=== PATIENT | male | born 1990 | race Caucasian/White ===

== ENCOUNTER 2017-09-21 14:00 | Emergency (ER) | payer OTHER ==
[~2017-09-21] VITALS: Ht 167.6 cm; Wt 72.6 kg
[~2017-09-21 14:00] MED LIST: ALBU90OI INH; AMOCLA875 PO; AMOX500 PO; ATOM25; ATOM40 PO; ATOM60; CITA20 PO; CLON.1 PO; CYCL10 PO; ESCI10; ESCI20 PO; HYDACE5 PO; HYDACE5325 PO; HYDHCL25; HYDHCL25 PO; IBUP600 PO; IBUP800 PO; Minipress2 MG; NEOPOLHCSU OT; NORT25; Norco 5-325 Ta1 EACH PO; PRAZ1 PO; PRED20 PO; Pepcid20 MG PO; RXCYCL10 PO; RXLORA1 PO; RXTRAM50 PO; TRAM50 PO; Ultram50 MG PO
[2017-09-21 14:36] LABS: BASOPHILS ABSOLUTE AUTO 0.02 K/mm3 (0.00-0.23); BASOPHILS PERCENT AUTO 0 % (0-2); EOSINOPHILS ABSOLUTE AUTO 0.13 K/mm3 (0.00-0.68); EOSINOPHILS PERCENT AUTO 2 % (0-6); Hematocrit 39.6 % (37.0-53.0); Hemoglobin 13.9 g/dL (13.5-17.5); IMMATURE GRAN ABSOLUTE AUTO 0.02 K/mm3 (0.00-0.10); IMMATURE GRAN PERCENT AUTO 0 % (0-1); LYMPHOCYTES ABSOLUTE AUTO 2.72 K/mm3 (0.84-5.20); LYMPHOCYTES PERCENT AUTO 37 % (21-46); MONOCYTES ABSOLUTE AUTO 0.47 K/mm3 (0.16-1.47); MONOCYTES PERCENT AUTO 6 % (4-13); Mean Corpuscular HGB 31.4 pg (26.0-34.0); Mean Corpuscular HGB Conc 35.1 g/dL (31.5-36.5); Mean Corpuscular Volume 90 fL (80-100); Mean Platelet Volume 9.2 fL (9.1-12.4); NEUTROPHILS ABSOLUTE AUTO 4.07 K/mm3 (1.96-9.15); NEUTROPHILS PERCENT AUTO 55 % (41-73); Platelet Count 352 K/mm3 (150-400); RDW Standard Deviation 39.6 fL (35.1-46.3); Red Blood Cell Count 4.42 M/mm3 (4.30-5.90); White Blood Cell Count 7.43 K/mm3 (4.00-11.30)
[2017-09-21 14:56] LABS: Alanine Aminotransfer (ALT/SGP 18 U/L (12-78); Albumin, Blood 3.8 g/dL (3.4-5.0); Albumin/Globulin Ratio 1.1 (0.8-1.8); Alk Phos 66 U/L (50-136); Anion Gap 9 mmol/L (6-16); Aspartate Aminotrans (AST/SGOT 20 U/L (12-37); Bilirubin, Total 0.4 mg/dL (0.1-1.0); Blood Urea Nitrogen 11 mg/dL (8-24); Bun/Creatinine Ratio 12.4 (12.0-20.0); CO2, Blood 24 mmol/L (21-32); Calcium, Blood 8.7 mg/dL (8.5-10.1); Chloride, Blood 108 mmol/L (98-108); Creatinine, Blood 0.89 mg/dL (0.60-1.20); Globulin, Blood 3.5 g/dL (2.2-4.0); Glomerular Filtration Rate >60 (60-); Glucose, Blood 115 mg/dL (70-99); Potassium, Blood 3.4 mmol/L (3.5-5.5); Sodium, Blood 141 mmol/L (136-145); Total Protein, Blood 7.3 g/dL (6.4-8.2); Troponin I <0.015 ng/mL (0.000-0.040)
== END 2017-09-21 16:29 | disposition home or self-care (01) ==
LOC: ER 14:00
PROVIDERS: Emergency Medicine
DX: R55 Syncope and collapse (principal); I10 Essential (primary) hypertension; J45.909 Unspecified asthma, uncomplicated; F17.210 Nicotine dependence, cigarettes, uncomplicated; Z91.038 Other insect allergy status; Z88.8 Allergy status to other drugs, medicaments and biological substances
CPT/HCPCS: 80053; 84484; 85025; 93005; 93010; 93225; 93226; 99284-25

== ENCOUNTER 2017-10-07 14:20 | Inpatient (IN) | payer OTHER ==
[~2017-10-07] VITALS: Ht 167.6 cm; Wt 78.1 kg
[2017-10-07 15:02] LABS: Source, Urine Clean Catch
[2017-10-07 15:07] LABS: BASOPHILS ABSOLUTE AUTO 0.01 K/mm3 (0.00-0.23); BASOPHILS PERCENT AUTO 0 % (0-2); EOSINOPHILS PERCENT AUTO 0 % (0-6); Hematocrit 40.1 % (37.0-53.0); Hemoglobin 13.7 g/dL (13.5-17.5); IMMATURE GRAN ABSOLUTE AUTO 0.02 K/mm3 (0.00-0.10); IMMATURE GRAN PERCENT AUTO 0 % (0-1); LYMPHOCYTES ABSOLUTE AUTO 1.66 K/mm3 (0.84-5.20); LYMPHOCYTES PERCENT AUTO 33 % (21-46); MONOCYTES ABSOLUTE AUTO 0.06 K/mm3 (0.16-1.47); MONOCYTES PERCENT AUTO 1 % (4-13); Mean Corpuscular HGB 31.1 pg (26.0-34.0); Mean Corpuscular HGB Conc 34.2 g/dL (31.5-36.5); Mean Corpuscular Volume 91 fL (80-100); Mean Platelet Volume 9.5 fL (9.1-12.4); NEUTROPHILS ABSOLUTE AUTO 3.24 K/mm3 (1.96-9.15); NEUTROPHILS PERCENT AUTO 65 % (41-73); Platelet Count 323 K/mm3 (150-400); RDW Standard Deviation 40.4 fL (35.1-46.3); White Blood Cell Count 4.99 K/mm3 (4.00-11.30)
[2017-10-07 15:23] LABS: Appearance, Urine Clear (Clear); Bilirubin, Urine Neg (Neg); Blood, Urine Neg (Neg); Color, Urine Yellow (P-Yellow); Glucose Qualitative, Urine Neg (Neg); Ketones, Urine 1+ (Neg); Leukocyte Esterase, Urine Neg (Neg); Nitrite, Urine Neg (Neg); Protein, Urine 3+ (Neg); Specific Gravity, Urine 1.015 (1.003-1.022); Urobilinogen, Urine NORM (Normal)
[2017-10-07 15:30] LABS: Alanine Aminotransfer (ALT/SGP 17 U/L (12-78); Albumin, Blood 3.7 g/dL (3.4-5.0); Albumin/Globulin Ratio 1.1 (0.8-1.8); Alk Phos 51 U/L (50-136); Anion Gap 11 mmol/L (6-16); Aspartate Aminotrans (AST/SGOT 15 U/L (12-37); Bilirubin, Total 0.4 mg/dL (0.1-1.0); Blood Urea Nitrogen 14 mg/dL (8-24); Bun/Creatinine Ratio 11.1 (12.0-20.0); CO2, Blood 23 mmol/L (21-32); Calcium, Blood 8.3 mg/dL (8.5-10.1); Chloride, Blood 110 mmol/L (98-108); Creatinine, Blood 1.26 mg/dL (0.60-1.20); Ethanol (Alcohol), Blood, Med <3 mg/dL; Globulin, Blood 3.4 g/dL (2.2-4.0); Glomerular Filtration Rate >60 (60-); Glucose, Blood 95 mg/dL (70-99); Potassium, Blood 3.7 mmol/L (3.5-5.5); Salicylate 1.7 mg/dL (2.8-20.0); Sodium, Blood 144 mmol/L (136-145); Total Protein, Blood 7.1 g/dL (6.4-8.2)
[2017-10-07 15:37] LABS: CPK Creatine Kinase 116 U/L (39-308); Thyroid Stimulating Hormone 0.668 uIU/mL (0.360-4.800)
[2017-10-07 15:42] LABS: Acetaminophen, Random <2.0 ug/mL (10.0-30.0)
[2017-10-07 15:44] LABS: U Amphetamine Screen Not Detected; U Barbituate Screen Not Detected; U Benzodiazapine Screen Not Detected; U Buprenorphine Screen Not Detected; U Cannabinoids Screen Not Detected; U Cocaine Screen Not Detected; U Methadone Screen Not Detected; U Methamphetamine Screen Not Detected; U Opiates Screen Not Detected; U Oxycodone Screen Not Detected; U Phencyclidine Screen Not Detected; U Propoxyphene Screen Not Detected
[2017-10-07 15:55] LABS: Bacteria Not Seen /hpf; Red Blood Cells, Urine Not Seen /hpf (0-2); Squamous Epithelial Cells Not Seen /hpf (Few); White Blood Cells, Urine Not Seen /hpf (0-5)
[2017-10-07 16:39] LABS: Valproic Acid >300.0 ug/mL (50.0-100.0)
[2017-10-07] MEDS ORDERED: CLON.1 PO (16:44)
[2017-10-07] MEDS ORDERED: Prazosin HCl1 MG PO (16:44)
[2017-10-07] MEDS ORDERED: DIVA500EC PO (16:44)
[2017-10-07 18:04] LABS: Valproic Acid 329.1 ug/mL (50.0-100.0)
[2017-10-07 20:31] LABS: Valproic Acid 186.5 ug/mL (50.0-100.0)
[2017-10-08 03:58] LABS: Hematocrit 35.1 % (37.0-53.0); Hemoglobin 11.8 g/dL (13.5-17.5); Mean Corpuscular HGB 30.6 pg (26.0-34.0); Mean Corpuscular HGB Conc 33.6 g/dL (31.5-36.5); Mean Corpuscular Volume 91 fL (80-100); Mean Platelet Volume 9.3 fL (9.1-12.4); Platelet Count 260 K/mm3 (150-400); RDW Coefficient Variation 12.1 % (11.7-14.2); RDW Standard Deviation 40.7 fL (35.1-46.3); Red Blood Cell Count 3.85 M/mm3 (4.30-5.90); White Blood Cell Count 7.19 K/mm3 (4.00-11.30)
[2017-10-08 04:18] LABS: Alanine Aminotransfer (ALT/SGP 14 U/L (12-78); Albumin, Blood 2.8 g/dL (3.4-5.0); Alk Phos 39 U/L (50-136); Anion Gap 7 mmol/L (6-16); Aspartate Aminotrans (AST/SGOT 13 U/L (12-37); Bilirubin, Total 0.5 mg/dL (0.1-1.0); Blood Urea Nitrogen 12 mg/dL (8-24); Bun/Creatinine Ratio 12.6 (12.0-20.0); CO2, Blood 23 mmol/L (21-32); Calcium, Blood 7.1 mg/dL (8.5-10.1); Chloride, Blood 111 mmol/L (98-108); Creatinine, Blood 0.95 mg/dL (0.60-1.20); Globulin, Blood 2.8 g/dL (2.2-4.0); Glomerular Filtration Rate >60 (60-); Glucose, Blood 88 mg/dL (70-99); Potassium, Blood 3.8 mmol/L (3.5-5.5); Sodium, Blood 141 mmol/L (136-145); Total Protein, Blood 5.6 g/dL (6.4-8.2); Valproic Acid 100.2 ug/mL (50.0-100.0); Valproic Acid 102.5 ug/mL (50.0-100.0)
[2017-10-09 05:03] LABS: Alanine Aminotransfer (ALT/SGP 18 U/L (12-78); Albumin, Blood 3.1 g/dL (3.4-5.0); Alk Phos 56 U/L (50-136); Anion Gap 8 mmol/L (6-16); Aspartate Aminotrans (AST/SGOT 13 U/L (12-37); Bilirubin, Total 0.3 mg/dL (0.1-1.0); Blood Urea Nitrogen 8 mg/dL (8-24); Bun/Creatinine Ratio 8.8 (12.0-20.0); CO2, Blood 27 mmol/L (21-32); Calcium, Blood 8.4 mg/dL (8.5-10.1); Chloride, Blood 108 mmol/L (98-108); Creatinine, Blood 0.91 mg/dL (0.60-1.20); Glomerular Filtration Rate >60 (60-); Glucose, Blood 85 mg/dL (70-99); Potassium, Blood 3.9 mmol/L (3.5-5.5); Sodium, Blood 143 mmol/L (136-145); Total Protein, Blood 6.1 g/dL (6.4-8.2)
[2017-10-09 05:04] LABS: Valproic Acid 47.3 ug/mL (50.0-100.0)
== END 2017-10-09 17:03 | disposition home or self-care (01) | DRG 918 ==
LOC: ER 14:20 → ICUE 16:53 → ICUW 16:53 → ICUE 17:58
PROVIDERS: Hospitalist; Internal Medicine; Nurse Practitioner Acute Care
DX: T39.1X2A Poisoning by 4-Aminophenol derivatives, intentional self-harm, initial encounter (principal); F43.10 Post-traumatic stress disorder, unspecified; F17.210 Nicotine dependence, cigarettes, uncomplicated; Z78.1 Physical restraint status; J45.909 Unspecified asthma, uncomplicated; R45.1 Restlessness and agitation; Z59.0 Homelessness
CPT/HCPCS: 36415; 71045; 80053; 80164; 81001; 82140; 82550; 83735; 84443; 85025; 85027; 93005; 93010; 99285-25; C9113; G0480; J1650; J2405; J7030

== ENCOUNTER 2017-11-03 13:13 | Emergency (ER) | payer OTHER ==
[~2017-11-03] VITALS: Ht 167.6 cm; Wt 68.0 kg
[~2017-11-03 13:13] MED LIST changes: +DIVA500EC PO; +Prazosin HCl1 MG PO
[2017-11-03] MEDS ORDERED: Abilify2 MG (13:20)
[2017-11-03 14:50] LABS: Calcium, Ionized (POC) 1.21 mmol/L (1.10-1.46); Chloride (POC) 101 mmol/L (98-108); Glucose (ISTAT POC) 84 mg/dL (70-99); Hemoglobin (POC) 12.9 g/dL (13.5-17.5); Potassium (POC) 4.1 mmol/L (3.5-5.5); Sodium (POC) 140 mmol/L (135-148); Total CO2 (POC) 27 mmol/L (21-32)
== END 2017-11-03 15:15 | disposition home or self-care (01) ==
LOC: ER 13:13
PROVIDERS: Nurse Practitioner Family
DX: J06.9 Acute upper respiratory infection, unspecified (principal); R11.2 Nausea with vomiting, unspecified; I10 Essential (primary) hypertension; F17.200 Nicotine dependence, unspecified, uncomplicated; Z91.048 Other nonmedicinal substance allergy status; Z88.8 Allergy status to other drugs, medicaments and biological substances; Z79.899 Other long term (current) drug therapy
CPT/HCPCS: 36415; 80047; 85014; 99283

== ENCOUNTER → 2018-02-11 | Outpatient (CLI) | payer OTHER ==
[~2018-02-11] MED LIST changes: +Abilify2 MG
[2018-02-11 17:43] LABS: U Amphetamine Screen Not Detected; U Barbituate Screen Not Detected; U Benzodiazapine Screen Not Detected; U Cocaine Screen Not Detected; U Methamphetamine Screen Not Detected
[2018-02-11 17:44] LABS: U Buprenorphine Screen Not Detected; U Cannabinoids Screen Not Detected; U Methadone Screen Not Detected; U Opiates Screen Not Detected; U Oxycodone Screen Not Detected; U Phencyclidine Screen Not Detected; U Propoxyphene Screen Not Detected
== END ==
LOC: LAB 16:00 → LAB SHORT 16:00
PROVIDERS: Nurse Practitioner Family
DX: Z51.81 Encounter for therapeutic drug level monitoring (principal); Z79.899 Other long term (current) drug therapy

== ENCOUNTER → 2018-05-27 | Outpatient (CLI) | payer OTHER ==
[2018-05-27 14:55] LABS: U Amphetamine Screen DETECTED; U Methamphetamine Screen Not Detected
[2018-05-27 14:56] LABS: U Barbituate Screen Not Detected; U Benzodiazapine Screen Not Detected; U Buprenorphine Screen Not Detected; U Cannabinoids Screen Not Detected; U Cocaine Screen Not Detected; U Methadone Screen Not Detected; U Opiates Screen Not Detected; U Oxycodone Screen Not Detected; U Phencyclidine Screen Not Detected; U Propoxyphene Screen Not Detected
== END ==
LOC: LAB SHORT 14:13 → LAB 14:13
PROVIDERS: Nurse Practitioner Family
DX: Z51.81 Encounter for therapeutic drug level monitoring (principal); Z79.899 Other long term (current) drug therapy

== ENCOUNTER 2018-06-04 20:45 | Emergency (ER) | payer OTHER ==
[~2018-06-04] VITALS: Ht 170.2 cm; Wt 77.1 kg
[2018-06-04] MEDS ORDERED: AMPDEX5 PO (20:58)
== END 2018-06-04 21:22 | disposition home or self-care (01) ==
LOC: ER 20:45
DX: R56.9 Unspecified convulsions (principal); F31.9 Bipolar disorder, unspecified; F90.9 Attention-deficit hyperactivity disorder, unspecified type; F43.10 Post-traumatic stress disorder, unspecified; F17.210 Nicotine dependence, cigarettes, uncomplicated
CPT/HCPCS: 99284-25

== ENCOUNTER 2018-06-05 16:42 | Emergency (ER) | payer OTHER ==
[~2018-06-05] VITALS: Ht 170.2 cm; Wt 77.1 kg
[~2018-06-05 16:42] MED LIST changes: +AMPDEX5 PO
== END 2018-06-05 18:12 | disposition home or self-care (01) ==
LOC: ER 16:42
DX: S60.511A Abrasion of right hand, initial encounter (principal); R07.89 Other chest pain; V49.9XXA Car occupant (driver) (passenger) injured in unspecified traffic accident, initial encounter; Z88.8 Allergy status to other drugs, medicaments and biological substances; Z91.030 Bee allergy status; Z79.899 Other long term (current) drug therapy; J45.909 Unspecified asthma, uncomplicated; I10 Essential (primary) hypertension; F90.9 Attention-deficit hyperactivity disorder, unspecified type; F17.210 Nicotine dependence, cigarettes, uncomplicated
CPT/HCPCS: 71046; 73130; 99284-25

== ENCOUNTER 2018-11-02 16:02 | Emergency (ER) | payer OTHER ==
[~2018-11-02] VITALS: Ht 167.6 cm; Wt 83.9 kg
[2018-11-02] MEDS ORDERED: ARIPIPRAZOLE10 M1 PO (16:32)
[2018-11-02] MEDS ORDERED: Oxcarbazepine300 MG (16:32)
[2018-11-02] MEDS ORDERED: DIVA250ER PO (16:32)
[2018-11-02] MEDS ORDERED: Polytrim Eye Dr10 ML BOTHEYES (17:30)
== END 2018-11-02 17:43 | disposition home or self-care (01) ==
LOC: ER 16:02
DX: H10.9 Unspecified conjunctivitis (principal); F90.9 Attention-deficit hyperactivity disorder, unspecified type; I10 Essential (primary) hypertension; F17.210 Nicotine dependence, cigarettes, uncomplicated; Z91.048 Other nonmedicinal substance allergy status; Z91.030 Bee allergy status; Z88.8 Allergy status to other drugs, medicaments and biological substances; Z79.899 Other long term (current) drug therapy
CPT/HCPCS: 99282

== ENCOUNTER 2019-02-06 22:12 | Emergency (ER) | payer OTHER ==
[~2019-02-06] VITALS: Ht 167.6 cm; Wt 86.2 kg
[~2019-02-06 22:12] MED LIST changes: +ARIPIPRAZOLE10 M1 PO; +DIVA250ER PO; +Oxcarbazepine300 MG; +Polytrim Eye Dr10 ML BOTHEYES
[2019-02-06] MEDS ORDERED: LAMO25 PO (22:31)
[2019-02-06] MEDS ORDERED: OXCA150 PO (22:31)
[2019-02-06 23:50] LABS: Calcium, Ionized (POC) 1.13 mmol/L (1.10-1.46); Chloride (POC) 103 mmol/L (98-108); Glucose (ISTAT POC) 92 mg/dL (70-99); Hemoglobin (POC) 16.3 g/dL (13.5-17.5); Sodium (POC) 137 mmol/L (135-148); Total CO2 (POC) 27 mmol/L (21-32)
== END 2019-02-06 23:59 | disposition home or self-care (01) ==
LOC: ER 22:12
PROVIDERS: Physician Assistant
DX: R56.9 Unspecified convulsions (principal); Z91.14 Patient's other noncompliance with medication regimen; Z91.038 Other insect allergy status; J45.909 Unspecified asthma, uncomplicated; I10 Essential (primary) hypertension; F43.10 Post-traumatic stress disorder, unspecified; F90.9 Attention-deficit hyperactivity disorder, unspecified type; F17.210 Nicotine dependence, cigarettes, uncomplicated
CPT/HCPCS: 80047; 85014; 99284

== ENCOUNTER 2019-04-10 23:19 | Emergency (ER) | payer MEDICARE, OTHER ==
[~2019-04-10] VITALS: Ht 170.2 cm; Wt 88.9 kg
[~2019-04-10 23:19] MED LIST changes: +LAMO25 PO; +OXCA150 PO
== END 2019-04-11 04:00 | disposition left against medical advice (07) ==
LOC: ER 23:19
DX: Z53.21 Procedure and treatment not carried out due to patient leaving prior to being seen by health care provider (principal)

== ENCOUNTER 2019-04-13 12:29 | Emergency (ER) | payer MEDICARE, OTHER ==
[~2019-04-13] VITALS: Ht 172.7 cm; Wt 88.9 kg
[2019-04-13] MEDS ORDERED: Oxcarbazepine300 MG PO (12:43)
[2019-04-13] MEDS ORDERED: DIVA250ER PO (12:43)
[2019-04-13] MEDS ORDERED: LAMOTRIGINE100 M1 PO (12:43)
[2019-04-13 13:31] LABS: Anion Gap 6 mmol/L (6-16); Blood Urea Nitrogen 10 mg/dL (8-24); Bun/Creatinine Ratio 10.1 (12.0-20.0); CO2, Blood 27 mmol/L (21-32); Calcium, Blood 8.9 mg/dL (8.5-10.1); Chloride, Blood 106 mmol/L (98-108); Creatinine, Blood 0.99 mg/dL (0.60-1.20); Glomerular Filtration Rate >60 (60-); Glucose, Blood 101 mg/dL (70-99); Potassium, Blood 3.8 mmol/L (3.5-5.5); Sodium, Blood 139 mmol/L (136-145)
[2019-04-13 13:36] LABS: Valproic Acid 39.4 ug/mL (50.0-100.0)
== END 2019-04-13 14:16 | disposition left against medical advice (07) ==
LOC: ER 12:29
PROVIDERS: Emergency Medicine
DX: G40.909 Epilepsy, unspecified, not intractable, without status epilepticus (principal); S00.81XA Abrasion of other part of head, initial encounter; I10 Essential (primary) hypertension; F90.9 Attention-deficit hyperactivity disorder, unspecified type; J45.909 Unspecified asthma, uncomplicated; F17.210 Nicotine dependence, cigarettes, uncomplicated; F43.10 Post-traumatic stress disorder, unspecified; Z91.14 Patient's other noncompliance with medication regimen; Z91.030 Bee allergy status; Z88.8 Allergy status to other drugs, medicaments and biological substances; Z91.048 Other nonmedicinal substance allergy status; X58.XXXA Exposure to other specified factors, initial encounter
CPT/HCPCS: 36415; 80048; 80164; 99284; J7030

== ENCOUNTER 2019-04-17 16:57 | Emergency (ER) | payer MEDICARE, OTHER ==
[~2019-04-17] VITALS: Ht 172.7 cm; Wt 90.7 kg
[~2019-04-17 16:57] MED LIST changes: +LAMOTRIGINE100 M1 PO; +Oxcarbazepine300 MG PO
== END 2019-04-17 17:15 | disposition home or self-care (01) ==
LOC: ER 16:57
DX: R56.9 Unspecified convulsions (principal); S00.81XA Abrasion of other part of head, initial encounter; F90.9 Attention-deficit hyperactivity disorder, unspecified type; F17.210 Nicotine dependence, cigarettes, uncomplicated; W18.30XA Fall on same level, unspecified, initial encounter
CPT/HCPCS: 99284

== ENCOUNTER 2019-05-03 14:21 | Emergency (ER) | payer MEDICARE, OTHER ==
[~2019-05-03] VITALS: Ht 172.7 cm; Wt 86.2 kg
[2019-05-03] MEDS ORDERED: ARIPIPRAZOLE10 M1 PO (14:40)
[2019-05-03 15:14] LABS: Valproic Acid 54.7 ug/mL (50.0-100.0)
== END 2019-05-03 16:38 | disposition home or self-care (01) ==
LOC: ER 14:21
PROVIDERS: Emergency Medicine
DX: R56.9 Unspecified convulsions (principal); I10 Essential (primary) hypertension; J45.909 Unspecified asthma, uncomplicated; F43.10 Post-traumatic stress disorder, unspecified; F17.210 Nicotine dependence, cigarettes, uncomplicated; Z88.8 Allergy status to other drugs, medicaments and biological substances; Z91.030 Bee allergy status
CPT/HCPCS: 80164; 99284

== ENCOUNTER 2019-05-03 23:12 | Emergency (ER) | payer MEDICARE, OTHER ==
[~2019-05-03] VITALS: Ht 170.2 cm; Wt 86.2 kg
[2019-05-03 23:59] LABS: BASOPHILS ABSOLUTE AUTO 0.04 K/mm3 (0.00-0.23); BASOPHILS PERCENT AUTO 0 % (0-2); EOSINOPHILS ABSOLUTE AUTO 0.04 K/mm3 (0.00-0.68); EOSINOPHILS PERCENT AUTO 0 % (0-6); Hematocrit 42.3 % (37.0-53.0); Hemoglobin 14.2 g/dL (13.5-17.5); IMMATURE GRAN ABSOLUTE AUTO 0.03 K/mm3 (0.00-0.10); IMMATURE GRAN PERCENT AUTO 0 % (0-1); LYMPHOCYTES ABSOLUTE AUTO 2.77 K/mm3 (0.84-5.20); LYMPHOCYTES PERCENT AUTO 22 % (21-46); MONOCYTES ABSOLUTE AUTO 0.93 K/mm3 (0.16-1.47); MONOCYTES PERCENT AUTO 7 % (4-13); Mean Corpuscular HGB 31.5 pg (26.0-34.0); Mean Corpuscular HGB Conc 33.6 g/dL (31.5-36.5); Mean Corpuscular Volume 94 fL (80-100); Mean Platelet Volume 9.4 fL (9.1-12.4); NEUTROPHILS ABSOLUTE AUTO 9.07 K/mm3 (1.96-9.15); NEUTROPHILS PERCENT AUTO 71 % (41-73); Platelet Count 370 K/mm3 (150-400); RDW Coefficient Variation 12.8 % (11.7-14.2); RDW Standard Deviation 43.8 fL (35.1-46.3); Red Blood Cell Count 4.51 M/mm3 (4.30-5.90); White Blood Cell Count 12.88 K/mm3 (4.00-11.30)
[2019-05-04 00:16] LABS: Anion Gap 9 mmol/L (6-16); Blood Urea Nitrogen 11 mg/dL (8-24); Bun/Creatinine Ratio 11.5 (12.0-20.0); CO2, Blood 24 mmol/L (21-32); Calcium, Blood 8.6 mg/dL (8.5-10.1); Chloride, Blood 103 mmol/L (98-108); Creatinine, Blood 0.95 mg/dL (0.60-1.20); Ethanol (Alcohol), Blood, Med 98 mg/dL; Glomerular Filtration Rate >60 (60-); Glucose, Blood 81 mg/dL (70-99); Potassium, Blood 3.6 mmol/L (3.5-5.5); Sodium, Blood 136 mmol/L (136-145)
== END 2019-05-04 00:59 | disposition home or self-care (01) ==
LOC: ER 23:12
PROVIDERS: Emergency Medicine
DX: S00.01XA Abrasion of scalp, initial encounter (principal); F10.129 Alcohol abuse with intoxication, unspecified; Y90.4 Blood alcohol level of 80-99 mg/100 ml; I10 Essential (primary) hypertension; F43.10 Post-traumatic stress disorder, unspecified; F90.9 Attention-deficit hyperactivity disorder, unspecified type; J45.909 Unspecified asthma, uncomplicated; F17.210 Nicotine dependence, cigarettes, uncomplicated; Z91.030 Bee allergy status; Z88.8 Allergy status to other drugs, medicaments and biological substances; Z79.899 Other long term (current) drug therapy; W50.0XXA Accidental hit or strike by another person, initial encounter
CPT/HCPCS: 70450; 80048; 80164; 85025; 99284-25; G0480

== ENCOUNTER 2019-05-13 19:35 | Inpatient (IN) | payer MEDICARE, OTHER ==
[~2019-05-13] VITALS: Ht 170.2 cm; Wt 82.6 kg
[2019-05-13 20:02] LABS: BASOPHILS ABSOLUTE AUTO 0.03 K/mm3 (0.00-0.23); BASOPHILS PERCENT AUTO 0 % (0-2); EOSINOPHILS ABSOLUTE AUTO 0.06 K/mm3 (0.00-0.68); EOSINOPHILS PERCENT AUTO 0 % (0-6); Hemoglobin 14.5 g/dL (13.5-17.5); IMMATURE GRAN ABSOLUTE AUTO 0.05 K/mm3 (0.00-0.10); IMMATURE GRAN PERCENT AUTO 0 % (0-1); LYMPHOCYTES ABSOLUTE AUTO 3.92 K/mm3 (0.84-5.20); LYMPHOCYTES PERCENT AUTO 27 % (21-46); MONOCYTES ABSOLUTE AUTO 1.02 K/mm3 (0.16-1.47); MONOCYTES PERCENT AUTO 7 % (4-13); Mean Corpuscular HGB 32.4 pg (26.0-34.0); Mean Corpuscular HGB Conc 34.5 g/dL (31.5-36.5); Mean Corpuscular Volume 94 fL (80-100); Mean Platelet Volume 9.4 fL (9.1-12.4); NEUTROPHILS ABSOLUTE AUTO 9.26 K/mm3 (1.96-9.15); NEUTROPHILS PERCENT AUTO 65 % (41-73); Platelet Count 389 K/mm3 (150-400); RDW Coefficient Variation 12.6 % (11.7-14.2); RDW Standard Deviation 43.5 fL (35.1-46.3); Red Blood Cell Count 4.48 M/mm3 (4.30-5.90); White Blood Cell Count 14.34 K/mm3 (4.00-11.30)
[2019-05-13 20:09] LABS: PCO2 Arterial 27.8 mmHg (35-45); PO2 Arterial 100 mmHg (80-100); pH Blood Arterial 7.48 (7.35-7.45)
[2019-05-13 20:20] LABS: U Amphetamine Screen Not Detected; U Barbituate Screen Not Detected; U Benzodiazapine Screen Not Detected; U Buprenorphine Screen Not Detected; U Cannabinoids Screen Not Detected; U Cocaine Screen Not Detected; U Methadone Screen Not Detected; U Methamphetamine Screen Not Detected; U Opiates Screen Not Detected; U Oxycodone Screen Not Detected; U Phencyclidine Screen Not Detected; U Propoxyphene Screen Not Detected
[2019-05-13 20:22] LABS: Acetaminophen, Random <2.0 ug/mL (10.0-30.0); Alanine Aminotransfer (ALT/SGP 21 U/L (12-78); Albumin/Globulin Ratio 1.1 (0.8-1.8); Alk Phos 45 U/L (50-136); Anion Gap 9 mmol/L (6-16); Aspartate Aminotrans (AST/SGOT 20 U/L (12-37); Bilirubin, Total 0.3 mg/dL (0.1-1.0); Blood Urea Nitrogen 10 mg/dL (8-24); Bun/Creatinine Ratio 9.7 (12.0-20.0); CO2, Blood 22 mmol/L (21-32); Calcium, Blood 8.8 mg/dL (8.5-10.1); Chloride, Blood 105 mmol/L (98-108); Creatinine, Blood 1.03 mg/dL (0.60-1.20); Ethanol (Alcohol), Blood, Med <3 mg/dL; Globulin, Blood 3.6 g/dL (2.2-4.0); Glomerular Filtration Rate >60 (60-); Glucose, Blood 115 mg/dL (70-99); Potassium, Blood 3.7 mmol/L (3.5-5.5); Sodium, Blood 136 mmol/L (136-145); Total Protein, Blood 7.6 g/dL (6.4-8.2); Valproic Acid 30.4 ug/mL (50.0-100.0)
[2019-05-13 21:26] LABS: Valproic Acid 35.8 ug/mL (50.0-100.0)
--- NOTE | 2019-05-13 22:00 | NUR ---
ASSUMPTION OF CARE: PT UP FROM ED. INTUBATED AND SEDATED. LUNG SOUNDS CLEAR EXCEPT FOR R. LOWER LOBE COARSENESS. VENT SETTINGS- AC 14/500/PEEP 5/FIO2 30%. SPO2 >90%. IN SR WITH SBP IN THE 100S, SBP IN THE 70S. WESTFALL IN PLACE DRAINING TO GRAVITY. 18G IN R WRIST, 18G IN LAC. NS INFUSING AND PROPOFOL INF AT 75MCG. POISON CONTROL CONTACTED BY ED STAFF. WILL CALL AND GIVE AN UPDATE TO POISON CONTROL. WILL CONTINUE TO MONITOR
--- NOTE | 2019-05-13 22:00 | NUR ---
PT TO ICU FROM ED VIA STRETCHER. CURRENTLY SEDATED WITH PROPOFOL AT 75MCG. VENTED-SETTINGS ARE AC 14/500/ PEEP 5/FIO2 30%. SPO2 >90%. WILL CONTINUE TO MONITOR
--- NOTE | 2019-05-13 23:46 | NUR ---
POISON CONTROL NOTIFIED OF PTS CONDITION. RNELIOT STATED DEPAKOTE HAS A SLOW AND UNPREDICTABLE ABSORPTION. PEAK LEVELS COULD OCCUR AT 18HRS. RECOMMENDATION IS TO REPEAT SALICYLATE LEVELS 6HRS FROM LAST DRAW. DEPAKOTE LEVELS TO BE DRAWN Q 4HRS. L-CARNITINE CAN BE USED REVERSAL IF LEVELS ELEVATE ABOVE 450. RECOMMENDED TO CHECK AMMONIA LEVELS-CURRENTLY NORMAL;ACETAMINOPHEN LEVELS-CURRENTLY <2.0. DEPAKOTE LEVELS DRAWN AT ABOUT 1999 ARE 30.4, 2100 LEVEL IS 35.8 AMMONIA IS CURRENTLY 20 PLTS- 389 AST/ALT NORMAL BUN/CREATININE NORMAL WILL CONTINUE TO MONITOR AND UPDATE POISON CONTROL NEEDED
[2019-05-14 01:45] LABS: Valproic Acid 39.2 ug/mL (50.0-100.0)
[2019-05-14 05:32] LABS: Hematocrit 39.5 % (37.0-53.0); Hemoglobin 13.1 g/dL (13.5-17.5); Mean Corpuscular HGB 31.6 pg (26.0-34.0); Mean Corpuscular HGB Conc 33.2 g/dL (31.5-36.5); Mean Corpuscular Volume 95 fL (80-100); Mean Platelet Volume 9.2 fL (9.1-12.4); Platelet Count 284 K/mm3 (150-400); RDW Coefficient Variation 12.9 % (11.7-14.2); RDW Standard Deviation 45.4 fL (35.1-46.3); Red Blood Cell Count 4.14 M/mm3 (4.30-5.90); White Blood Cell Count 9.02 K/mm3 (4.00-11.30)
[2019-05-14 05:51] LABS: Alanine Aminotransfer (ALT/SGP 19 U/L (12-78); Albumin, Blood 3.3 g/dL (3.4-5.0); Albumin/Globulin Ratio 1.1 (0.8-1.8); Alk Phos 49 U/L (50-136); Anion Gap 8 mmol/L (6-16); Aspartate Aminotrans (AST/SGOT 14 U/L (12-37); Bilirubin, Total 0.3 mg/dL (0.1-1.0); Blood Urea Nitrogen 8 mg/dL (8-24); Bun/Creatinine Ratio 8.7 (12.0-20.0); CO2, Blood 24 mmol/L (21-32); Calcium, Blood 8.4 mg/dL (8.5-10.1); Chloride, Blood 111 mmol/L (98-108); Creatinine, Blood 0.92 mg/dL (0.60-1.20); Globulin, Blood 3.1 g/dL (2.2-4.0); Glomerular Filtration Rate >60 (60-); Glucose, Blood 83 mg/dL (70-99); Potassium, Blood 3.5 mmol/L (3.5-5.5); Salicylate 2.4 mg/dL (2.8-20.0); Sodium, Blood 143 mmol/L (136-145); Total Protein, Blood 6.4 g/dL (6.4-8.2); Valproic Acid 44.9 ug/mL (50.0-100.0)
--- NOTE | 2019-05-14 06:36 | NUR ---
SUMMARY: PT REMAINS INTUBATED AND SEDATED. IN SR. SBP IN THE 100S. HR IN THE 50S. LUNG SOUNDS CLEAR. VENT AC 16/500/PEEP 5/ FIO2 25%. SPO2 >90%. OG IN PLACE TO LIS. WESTFALL IN PLACE DRAINING TO GRAVITY. 2PIVS, 18GS IN R WRIST AND LAC. PROPOFOL INF AT 60MCG AND NS AT 75MLS/HR. DEPAKOTE BLOOD LEVELS RISING SLOWLY. CURRENTLY LEVEL 44.9. WEAN AND SBT PERFORMED. PROPOFOL TURNED DOWN TO 40MCG. PT DID WELL WITH SBT HOWEVER WAS FIGHTING RESTRAINTS, SITTING UPRIGHT IN BED AND ATTEMPTING TO REACH TUBE. VERSED X 2 GIVEN. PROPOFOL BACK TO 60MCG. PT IS CURRENTLY RESTING COMFORTABLY, NOT FIGHTING RESTRAINTS OR REACHING FOR ETT AT THIS TIME. WILL CONTINUE TO GIO
--- NOTE | 2019-05-14 08:25 | NUR ---
SEDATION VACATION: PROPOFOL TURNED DOWN FROM 60 TO 40 BASED ON RESULTS GIVEN DURING VACATION FROM REPORT. PT BECAME WRESTLESS WITH THIS BUT NO PURPOSEFUL MOVEMENT. PROPOFOL AT 50 MCG/KG AT THIS TIME.
[2019-05-14 13:32] LABS: Valproic Acid 48.5 ug/mL (50.0-100.0)
--- NOTE | 2019-05-14 13:47 | NUR ---
PT'S NEED FOR 60MCG OF PROPOFOL DISCUSSED WITH DR PRIDE. PRECEDEX STARTED IN HOPES TO TITRATE PROPOFOL DOWN. PT'S HR AND BP BECAME DECREASED SO PRECEDEX TITRATED OFF. PROPOFOL AT 20MCG AT THIS TIME. VERSED AND FENTANYL AVAILABLE NEEDED. DR INSTRUCTED TO GIVE 1L NS BOLUS AND TO HOLD OFF EXTUBATING AT THIS TIME DUE TO BP INSTABILITY.
--- NOTE | 2019-05-14 14:46 | NUR ---
PT'S MOTHER CALLED TO DISCUSS PT'S GIRLFRIEND SOLEDAD. WANTED TO MAKE SURE THAT SOLEDAD IS NOT ON THE LIST TO GET INFORMATION. MOTHER WAS INFORMED THAT SOLEDAD'S NAME IS ON FACE SHEET AND MOTHER INSISTED THAT HER NAME BE REMOVED. DISCUSSED WITH PRE WAVE ASSEMBLER WHO STATES THAT THAT OCCURS WHEN PT FIRST ADMITTED AND THAT ADMITTING FILLS THAT OUT. PRE WAVE ASSEMBLER STATES WE CANNOT CHANGE FACE SHEET UNLESS PT REQUESTS IT. ENSURED MOTHER THAT SOLEDAD'S NAME IS NOT ON VERBAL CONSENT FORM. MOTHER REQUESTED THAT WE CHECK FOR PT'S WALLET WHICH IS HERE SO THAT SOLEDAD CANNOT HAVE IT. PRE WAVE ASSEMBLER AWARE
[2019-05-14 17:36] LABS: Valproic Acid 45.4 ug/mL (50.0-100.0)
--- NOTE | 2019-05-14 18:45 | NUR ---
SHIFT SUMMARY: ATTEMPTED TO TITRATE PROPOFOL DOWN BY USING FENTANYL, VERSED AND PRECEDEX. PRECEDEX CAUSED DECREASE IN BP AND HR. WHEN PT WAS TITRATED DOWN ON PROPOFOL TO IMPROVE VITALS HE BUCKED IN BED AND ATTEMPTED TO SELF EXTUBATE. PROPOFOL BACK AT 60MCG AT THIS TIME AND PRECEDEX IS OFF. BPS HYPOTENSIVE BUT STABLE. NO FURTHER NEEDS OR CONCERNS AT THIS TIME.
--- NOTE | 2019-05-14 20:15 | NUR ---
INITIAL ASSESSMENT PATIENT INTUBATED AND SEDATED. PATIENT RESPONDS TO NURSING CARE AND PAINFUL STIMULI. PATIENT AFEBRILE. NO SIGNS OF PAIN NOTED. PATIENT ON VENT SETTINGS OF AC 16, TV 500, PEEP 5, AND 25% FIO2. LUNGS CLEAR IN UPPER LOBES AND DIMINISHED IN LOWER LOBES. SMALL AMOUNT OF THIN, CLEAR SPUTUM BEING SUCTIONED FROM THE ETT. PATIENT IN SB TO SR, HR 50S TO 60S. BP STABLE. PULSES STRONG. NO EDEMA NOTED. ABDOMEN SOFT, NONDISTENDED, SOFT, WITH NORMOACTIVE BS NOTED. OG TO LIS DRAINING GREEN LIQUID. WESTFALL IN PLACE DRAINING GREEN COLORED URINE. SCATTERED TATTOOS NOTED, OTHERWISE SKIN APPEARS C/D/I. PROPOFOL INFUSING AT 60 MCG/ KG/ MINUTE, NS AT 75 MLS/ HOUR. BED LOW, CALL LIGHT IN REACH. WILL CONTINUE TO MONITOR PATIENT FREQUENTLY THROUGHOUT SHIFT.
[2019-05-14 21:33] LABS: Valproic Acid 40.4 ug/mL (50.0-100.0)
--- NOTE | 2019-05-14 22:41 | NUR ---
POISON CONTROL CALLED TO CHECK UP ON PATIENT. STATED THEY WOULD CALL BACK AGAIN IN AM.
--- NOTE | 2019-05-15 00:30 | NUR ---
PATIENT REMAINS INTUBATED AND SEDATED. PATIENT AFEBRILE. NO SIGNS OF PAIN. PATIENT AGITATED AT TIMES. RECEIVING PRN VERSED FOR AGITATION. HR 40S TO 50S. BP STABLE. NO OTHER ACUTE CHANGES TO NOTE ON AT THIS TIME. WILL CONTINUE TO MONITOR.
[2019-05-15 01:41] LABS: Valproic Acid 36.2 ug/mL (50.0-100.0)
--- NOTE | 2019-05-15 04:31 | NUR ---
PATIENT BACK ON SEDATION AFTER HAVING AM SEDATION VACATION AND WEAN. PATIENT TOLERATED WEAN FOR 15 MINUTES BEFORE BECAME HYPERTENSIVE AND HAD SOME LOW TIDAL VOLUMES. PATIENT REMAINED MOSTLY CALM AND COOPERATIVE. PATIENT HAD A COUPLE INSTANCES OF AGITATION AND ANXIETY BUT ABLE TO BE CALMED WITH VERBAL SUPPORT. PATIENT AFEBRILE. PATIENT FOLLOWING SOME SIMPLE COMMANDS. HR 40S TO 50S. SBP 140S TO 170S. NO OTHER ACUTE CHANGES TO NOTE ON AT THIS TIME. WILL CONTINUE TO MONITOR.
[2019-05-15 05:14] LABS: BASOPHILS ABSOLUTE AUTO 0.02 K/mm3 (0.00-0.23); BASOPHILS PERCENT AUTO 0 % (0-2); EOSINOPHILS PERCENT AUTO 2 % (0-6); Hemoglobin 12.1 g/dL (13.5-17.5); IMMATURE GRAN ABSOLUTE AUTO 0.02 K/mm3 (0.00-0.10); IMMATURE GRAN PERCENT AUTO 0 % (0-1); LYMPHOCYTES ABSOLUTE AUTO 2.15 K/mm3 (0.84-5.20); LYMPHOCYTES PERCENT AUTO 32 % (21-46); MONOCYTES PERCENT AUTO 9 % (4-13); Mean Corpuscular HGB 32.1 pg (26.0-34.0); Mean Corpuscular HGB Conc 33.6 g/dL (31.5-36.5); Mean Corpuscular Volume 96 fL (80-100); Mean Platelet Volume 9.4 fL (9.1-12.4); NEUTROPHILS ABSOLUTE AUTO 3.83 K/mm3 (1.96-9.15); NEUTROPHILS PERCENT AUTO 57 % (41-73); Platelet Count 261 K/mm3 (150-400); RDW Coefficient Variation 13.3 % (11.7-14.2); Red Blood Cell Count 3.77 M/mm3 (4.30-5.90); White Blood Cell Count 6.72 K/mm3 (4.00-11.30)
[2019-05-15 05:27] LABS: Alanine Aminotransfer (ALT/SGP 17 U/L (12-78); Albumin, Blood 2.9 g/dL (3.4-5.0); Alk Phos 45 U/L (50-136); Anion Gap 5 mmol/L (6-16); Aspartate Aminotrans (AST/SGOT 16 U/L (12-37); Bilirubin, Total 0.3 mg/dL (0.1-1.0); Blood Urea Nitrogen 7 mg/dL (8-24); Bun/Creatinine Ratio 6.9 (12.0-20.0); CO2, Blood 24 mmol/L (21-32); Calcium, Blood 8.1 mg/dL (8.5-10.1); Chloride, Blood 115 mmol/L (98-108); Creatinine, Blood 1.02 mg/dL (0.60-1.20); Globulin, Blood 2.8 g/dL (2.2-4.0); Glomerular Filtration Rate >60 (60-); Glucose, Blood 78 mg/dL (70-99); Magnesium, Blood 2.1 mg/dL (1.6-2.4); Phosphorus, Blood 2.3 mg/dL (2.5-4.9); Potassium, Blood 3.6 mmol/L (3.5-5.5); Sodium, Blood 144 mmol/L (136-145); Total Protein, Blood 5.7 g/dL (6.4-8.2); Valproic Acid 34.3 ug/mL (50.0-100.0)
--- NOTE | 2019-05-15 06:33 | NUR ---
SHIFT SUMMARY PATIENT REMAINED INTUBATED AND ON SEDATION. PATIENT RECEIVED PRN FENTANYL FOR SIGNS OF PAIN AND PRN VERSED FOR AGITATION. PATIENT DID HAVE SEDATION VACATION AND WEAN THIS AM. PATIENT LASTED FOR 15 MINUTES BEFORE BECAME HYPERTENSIVE AND TIDAL VOLUMES ON THE LOWER SIDE. PATIENT FOLLOWED SOME SIMPLE COMMANDS WHILE ON SEDATION VACATION. PATIENT NEEDED MUCH REASSURANCE AND SUPPORT FROM NURSE TO STAY CALM AND NOT ANXIOUS/ AGITATED. PATIENT REMAINED AFEBRILE. PATIENT SATTED 90% AND GREATER ON AC 16, TV 500, PEEP 5, 25% FIO2. PATIENT HAS SMALL TO MODERATE AMOUNT OF THICK, PALE YELLOW SPUTUM FROM ETT. PATIENT REMAINED SB TO SR, HR 40S TO 50S. BP STABLE TO SBP 170S ON WEAN. OG REMAINED TO LIS, GREEN DRAINAGE NOTED. NO BM THIS SHIFT. WESTFALL DRAINED ADEQUATE AMOUNT OF GREEN URINE. NO CHANGE TO SKIN. PATIENT REPOSITIONED T/O SHIFT. PROPOFOL AT 60 MCG/ KG/ MINUTE, NS AT 75 MLS/ HOUR. PATIENT RECEIVED COMPLETE BED BATH. BED LOW, CALL LIGHT IN REACH. NO SIGNS OF PAIN AT THIS TIME. [facility].
--- NOTE | 2019-05-15 07:30 | NUR ---
PT REMAINS INTUBATED WITH PROPOFOL GTT. OCCASIONALLY ANXIETY NOTED WITH RESTLESSNESS IN BED. MEDICATE PRN WITH FENTANYL AND VERSED PER ORDERS. LUNGS CLEAR WITH SCANT AMOUNT VILLARREAL SECRETIONS VIA ETT. ABDOMINAL BT'S HYPOACTIVE AND O.G. TO LIS. BILATERAL RESTRAINTS IN PLACE PER PROTOCOL. CONTINUE TO MONITOR AND TX PER ORDERS.
[2019-05-15 09:34] LABS: Valproic Acid 32.4 ug/mL (50.0-100.0)
--- NOTE | 2019-05-15 09:56 | NUR ---
DR PRIDE HERE WITH NEW ORDERS TO HAVE RESPIRATORY THERAPY DO TRIAL OF WEANING FOR POSSIBLE EXTUBATION. PROPOFOL GTT OFF.
--- NOTE | 2019-05-15 10:30 | NUR ---
PT FULLY AWAKE, FOLLOWING COMMANDS, RT AT BEDSIDE. EXTUBATED, TOLERATED WELL, PT ON ROOM AIR. PT COMMUNICATING BY WRITING ON PAPER AND TRYING TO TALK WITH STAFF. VERY ANXIOUS NOTED ASKING ABOUT HIS SERVICE DOG. PRECEDEX GTT STARTED PER ORDERS. CIVIL RIGHT READ AND SIGNED BY PATIENT. WILL CALL HIS MOTHER AND UPDATE ON HIS STATUS. CONTINUE TO MONITOR AND TX PRN.
--- NOTE | 2019-05-15 10:45 | NUR ---
SPOKE WITH MOTHER LEÓN DOWNING AND UPDATED HER ON PT'S STATUS/CONDITION. ANSWERED ALL HER QUESTIONS.
--- NOTE | 2019-05-15 11:45 | NUR ---
UP IN ROOM WITH ENZO WALKER. CHANGED CLOTHES TO PAPER PANTS AND SHIRT. WILL ADVANCE DIET TO REGULAR. CONTINUE TO MONITOR CLOSELY. SITTER OUTSIDE OF ROOM.
--- NOTE | 2019-05-15 13:55 | NUR ---
DR HERNANDEZUFF HERE FOR PSYCH CONSULT.
--- NOTE | 2019-05-15 14:10 | NUR ---
PER DR DAILY, WILL DECRESE RISK SEVERITY TO MODERATE. CONTINUE TO MONITOR CLOSELY AND TX PRN.
--- NOTE | 2019-05-15 17:55 | NUR ---
SHIFT SUMMARY PATIENT EXTUBATED AT 1030 AM. A&OX4, COOPERATIVE, 2MD HOLD MODERATE RISK. DR DAILY CONSULTED TODAY. TAKEING ORAL INTAKE, TOLERATING WELL. WESTFALL DC'D AND VOIDING USING URINAL. UP TO BATHROOM WITH SBA, SLIGHTLY UNSTEADY ON FEET. X2 IV SITES SALINE LOCK. AMMONIA LEVEL THIS AM AT 73, PER POISON CONTROL MONITOR VALPROIC ACID AND AMMONIA LEVEL DAILY. CONTINUE WITH LEVOCARNITINE UNTIL AMMONIA LEVELS RETURN WNL'S. HR MID 40-50'S, PUT PRECEDEX GTT ON STANDBY AND WILL REACESS ANXIETY LEVEL. NO OTHER CHANGES NOTED. WILL REPORT OFF TO NOC SHIFT.
--- NOTE | 2019-05-15 18:24 | NUR ---
Morris responded well to me. He was quite honest about his relationship problems and regrets trying to end his life. He appears to have strong support from his mom. He was tearful when speaking about his dog. He allowed me to pray for him. He appeared to benefit from visit. I will remain available.
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
--- NOTE | 2019-05-16 00:19 | NUR ---
PATIENT WAKES EASILY, AFEBRILE, COMFORTABLE, NO C/O PAIN. NO ACUTE CHANGES, WILL CONTINUE TO MONITOR.
[2019-05-16 03:17] LABS: BASOPHILS ABSOLUTE AUTO 0.01 K/mm3 (0.00-0.23); BASOPHILS PERCENT AUTO 0 % (0-2); EOSINOPHILS PERCENT AUTO 2 % (0-6); Hematocrit 38.5 % (37.0-53.0); IMMATURE GRAN ABSOLUTE AUTO 0.01 K/mm3 (0.00-0.10); IMMATURE GRAN PERCENT AUTO 0 % (0-1); LYMPHOCYTES ABSOLUTE AUTO 2.25 K/mm3 (0.84-5.20); LYMPHOCYTES PERCENT AUTO 33 % (21-46); MONOCYTES ABSOLUTE AUTO 0.76 K/mm3 (0.16-1.47); MONOCYTES PERCENT AUTO 11 % (4-13); Mean Corpuscular HGB 31.9 pg (26.0-34.0); Mean Corpuscular HGB Conc 33.8 g/dL (31.5-36.5); Mean Corpuscular Volume 94 fL (80-100); Mean Platelet Volume 9.3 fL (9.1-12.4); NEUTROPHILS ABSOLUTE AUTO 3.62 K/mm3 (1.96-9.15); NEUTROPHILS PERCENT AUTO 54 % (41-73); Platelet Count 284 K/mm3 (150-400); RDW Standard Deviation 44.5 fL (35.1-46.3); Red Blood Cell Count 4.08 M/mm3 (4.30-5.90); White Blood Cell Count 6.75 K/mm3 (4.00-11.30)
[2019-05-16 03:36] LABS: Alanine Aminotransfer (ALT/SGP 21 U/L (12-78); Albumin, Blood 3.2 g/dL (3.4-5.0); Alk Phos 52 U/L (50-136); Anion Gap 3 mmol/L (6-16); Aspartate Aminotrans (AST/SGOT 19 U/L (12-37); Bilirubin, Total 0.5 mg/dL (0.1-1.0); Blood Urea Nitrogen 2 mg/dL (8-24); Bun/Creatinine Ratio 2.2 (12.0-20.0); CO2, Blood 29 mmol/L (21-32); Calcium, Blood 8.5 mg/dL (8.5-10.1); Chloride, Blood 109 mmol/L (98-108); Creatinine, Blood 0.91 mg/dL (0.60-1.20); Globulin, Blood 3.2 g/dL (2.2-4.0); Glomerular Filtration Rate >60 (60-); Glucose, Blood 92 mg/dL (70-99); Phosphorus, Blood 3.6 mg/dL (2.5-4.9); Potassium, Blood 3.6 mmol/L (3.5-5.5); Sodium, Blood 141 mmol/L (136-145); Total Protein, Blood 6.4 g/dL (6.4-8.2); Valproic Acid 23.5 ug/mL (50.0-100.0)
--- NOTE | 2019-05-16 06:18 | NUR ---
SHIFT SUMMARY PATIENT SLEPT MORE THIS LATE MORNING THAT THE ENTIRE NIGHT. HE HAS HAD AN UNEVENTFUL AM. HIS LT AC IV WAS REMOVED DUE TO PAIN AT THE SITE. THE SITE WAS WNL. NO ACUTE CHANGES, CALL LIGHT WITH IN REACH, BED IN LOWEST POSITION.
--- NOTE | 2019-05-16 08:09 | NUR ---
ASSUMED CARE OF PT AT 0700. REPORT FROM TEMO CEVALLOS. PT RESTING IN BED. WAKES c VERBAL STIMULI. CALM AND COOPERATIVE c CARE. PLEASENT. DENIES SI/HI. STATES HE PLANS TO STAY c PARENTS IF DISCHARGED. STATES THAT THIS IS A SAFE PLACE FOR HIM. A&OX 4. FOLLOWS COMMANDS. DENIES COMPLAINTS OR NEEDS. VSS. LUNGS CLEAR. PT P/W/D. AMBULATORY IN ROOM. CALL PLACED TO POISON CONTROL, RECOMMENDED D/C OF L-CARNATINE, WILL NOTIFY HOSP. PT REFUSING LOVENOX. PHONE GIVEN TO PT TO CALL MOTHER. WILL CONTINUE TO MONITOR.
--- NOTE | 2019-05-16 09:11 | NUR ---
DR MORALES AT BEDSIDE FOR ASSESSMENT THIS AM. CLEARED MEDICALLY. DR LOWE CALLED, OK/D FOR D/C. DR MORALES NOTIFIED.
--- NOTE | 2019-05-16 10:28 | NUR ---
D/C INSTRUCTIONS PROVIDED. PT VERBALIZED UNDERSTANING OF D/C INSTRUCTIONS. WILL F/U c PCP AND PSYCHIATRY. ALL HOME MEDS D/C'D PER DR LOWE. QUESTIONS ANSWERED. ALL BELONGINGS c PT. WALKED PT OUT TO MEET MOTHER IN PARKING LOT. REVIEWED D/C INSTRUCTIONS c HER. MOTHER REFUSED TO TAKE PT'S HOME MEDICATIONS. MOTHER AND PT REQUESTED THAT WE DISPOSE OF MEDS. ALL BOTTLES EMPTY EXCEPT ONE, OXCARBAZEPINE, SENT TO PHARMACY FOR DISPOSAL.
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
== END 2019-05-16 10:15 | disposition home or self-care (01) | DRG 917 ==
LOC: ER 19:35 → ICUE 19:36 → ICUW 19:36 → ICUE 21:32
PROVIDERS: Emergency Medicine; Family Medicine; Internal Medicine Critical Care Medicine; ADMIT Internal Medicine
PROC: 5A1935Z Respiratory Ventilation, Less than 24 Consecutive Hours (ICD-10-PCS; principal; 2019-05-13)
PROC: 0BH17EZ Insertion of Endotracheal Airway into Trachea, Via Natural or Artificial Opening (ICD-10-PCS; 2019-05-13)
DX: T42.6X2A Poisoning by other antiepileptic and sedative-hypnotic drugs, intentional self-harm, initial encounter (principal); J96.00 Acute respiratory failure, unspecified whether with hypoxia or hypercapnia; F43.10 Post-traumatic stress disorder, unspecified; F90.9 Attention-deficit hyperactivity disorder, unspecified type; K21.9 Gastro-esophageal reflux disease without esophagitis; E83.39 Other disorders of phosphorus metabolism; F43.21 Adjustment disorder with depressed mood; I10 Essential (primary) hypertension; F17.210 Nicotine dependence, cigarettes, uncomplicated
CPT/HCPCS: 31500; 31720; 36415; 36600; 51702; 71045; 80053; 80164; 82140; 82803; 83735; 84100; 84439; 84443; 85025; 85027; 93005; 93010; 94002; 94003; 96361; 96374; 99291-25; C9113; G0480; J1650; J2250; J2704; J3010; J7030; J7060

== ENCOUNTER → 2019-06-09 | Outpatient (CLI) | payer MEDICARE, OTHER | END | disposition home or self-care (01) | LOC: LAB SHORT 15:13 → LAB 15:13 | DX: J02.9 Acute pharyngitis, unspecified (principal) | CPT/HCPCS: 87081 ==

== ENCOUNTER 2019-06-15 15:47 | Inpatient (IN) | payer MEDICARE, OTHER ==
[~2019-06-15] VITALS: Ht 167.6 cm; Wt 75.6 kg
[2019-06-15 16:09] LABS: BASOPHILS ABSOLUTE AUTO 0.04 K/mm3 (0.00-0.23); BASOPHILS PERCENT AUTO 0 % (0-2); EOSINOPHILS ABSOLUTE AUTO 0.13 K/mm3 (0.00-0.68); EOSINOPHILS PERCENT AUTO 1 % (0-6); Hematocrit 46.5 % (37.0-53.0); Hemoglobin 15.9 g/dL (13.5-17.5); IMMATURE GRAN ABSOLUTE AUTO 0.09 K/mm3 (0.00-0.10); IMMATURE GRAN PERCENT AUTO 0 % (0-1); LYMPHOCYTES ABSOLUTE AUTO 5.63 K/mm3 (0.84-5.20); LYMPHOCYTES PERCENT AUTO 25 % (21-46); MONOCYTES PERCENT AUTO 6 % (4-13); Mean Corpuscular HGB 31.4 pg (26.0-34.0); Mean Corpuscular HGB Conc 34.2 g/dL (31.5-36.5); Mean Corpuscular Volume 92 fL (80-100); Mean Platelet Volume 9.2 fL (9.1-12.4); NEUTROPHILS ABSOLUTE AUTO 15.26 K/mm3 (1.96-9.15); NEUTROPHILS PERCENT AUTO 68 % (41-73); Platelet Count 461 K/mm3 (150-400); RDW Coefficient Variation 11.9 % (11.7-14.2); RDW Standard Deviation 40.7 fL (35.1-46.3); Red Blood Cell Count 5.06 M/mm3 (4.30-5.90); White Blood Cell Count 22.55 K/mm3 (4.00-11.30)
[2019-06-15 16:28] LABS: PCO2 Arterial 43.1 mmHg (35-45); PO2 Arterial 436 mmHg (80-100); pH Blood Arterial 7.39 (7.35-7.45)
[2019-06-15 16:29] LABS: Alanine Aminotransfer (ALT/SGP 24 U/L (12-78); Albumin, Blood 4.1 g/dL (3.4-5.0); Albumin/Globulin Ratio 0.9 (0.8-1.8); Alk Phos 72 U/L (50-136); Anion Gap 8 mmol/L (6-16); Aspartate Aminotrans (AST/SGOT 18 U/L (12-37); Bilirubin, Total 0.4 mg/dL (0.1-1.0); Blood Urea Nitrogen 12 mg/dL (8-24); Bun/Creatinine Ratio 12.9 (12.0-20.0); CO2, Blood 25 mmol/L (21-32); Calcium, Blood 9.5 mg/dL (8.5-10.1); Chloride, Blood 107 mmol/L (98-108); Creatinine, Blood 0.93 mg/dL (0.60-1.20); Globulin, Blood 4.6 g/dL (2.2-4.0); Glomerular Filtration Rate >60 (60-); Glucose, Blood 115 mg/dL (70-99); Potassium, Blood 3.9 mmol/L (3.5-5.5); Sodium, Blood 140 mmol/L (136-145); Total Protein, Blood 8.7 g/dL (6.4-8.2); Troponin I <0.015 ng/mL (0.000-0.040)
--- NOTE | 2019-06-15 21:10 | NUR ---
ASSUMED CARE NOTE: ASSUMED CARE OF PT AT 2100, RECEVIED REPORT FROM REEMA TAYLOR OR NURSE AT BEDSIDE GIVING REPORT. PT ARRIVED TO UNIT VIA STRETCHER. PT RESPONDED TO PAINFUL STIMULI. PT WAS PLACED ON HUMIDIFED O2 ONTO TRACH COLOR. SLIGHT REDNESS NOTED ON TRACH SITE, NO OZZING NOTED. VITALS STBLE. PT IN NSR WITH HR IN THE 60'S. WILL MONITOR PT THROUGH RECOVERY.
--- NOTE | 2019-06-15 21:50 | NUR ---
PT IS ALERT AND ORIENTEDX3, HE IS ABLE TO COMMUNICATE VIA PEN AND PAPER. PT STATES HE IS IN PAIN 7/10. PT STATES " I FEEL LIKE THEIR IS FLUID STUCK IN THE BACK OF MY THROAT" RT AT BEDSIDE PROVIDING CARE AND TRACH EDUCATION. PT IS HAVING A PRODUCTIVE COUGH WITH CLEAR WHITE SECRETIONS. TRACH SITE IS SCANT AMOUNT, OZZING BLOOD FROM SITE. SPLIT GAUZED PLACED. FENTYNAL GIVEN ORDERED FOR RECOVERY.
--- NOTE | 2019-06-15 23:31 | NUR ---
CALLED REGARDING EMERGENCY INTUBATUION ORDERS INCASE TRACH BECOMES DISLODGED. ORDERS GIVEN.
[2019-06-16 04:47] LABS: BASOPHILS ABSOLUTE AUTO 0.01 K/mm3 (0.00-0.23); BASOPHILS PERCENT AUTO 0 % (0-2); EOSINOPHILS PERCENT AUTO 0 % (0-6); Hematocrit 39.6 % (37.0-53.0); Hemoglobin 13.7 g/dL (13.5-17.5); IMMATURE GRAN ABSOLUTE AUTO 0.04 K/mm3 (0.00-0.10); IMMATURE GRAN PERCENT AUTO 0 % (0-1); LYMPHOCYTES ABSOLUTE AUTO 1.29 K/mm3 (0.84-5.20); LYMPHOCYTES PERCENT AUTO 9 % (21-46); MONOCYTES PERCENT AUTO 2 % (4-13); Mean Corpuscular HGB 31.5 pg (26.0-34.0); Mean Corpuscular HGB Conc 34.6 g/dL (31.5-36.5); Mean Corpuscular Volume 91 fL (80-100); Mean Platelet Volume 8.9 fL (9.1-12.4); NEUTROPHILS PERCENT AUTO 88 % (41-73); Platelet Count 381 K/mm3 (150-400); RDW Coefficient Variation 11.8 % (11.7-14.2); RDW Standard Deviation 39.8 fL (35.1-46.3); Red Blood Cell Count 4.35 M/mm3 (4.30-5.90); White Blood Cell Count 13.94 K/mm3 (4.00-11.30)
[2019-06-16 05:03] LABS: Anion Gap 6 mmol/L (6-16); Blood Urea Nitrogen 13 mg/dL (8-24); Bun/Creatinine Ratio 18.2 (12.0-20.0); CO2, Blood 24 mmol/L (21-32); Chloride, Blood 106 mmol/L (98-108); Creatinine, Blood 0.72 mg/dL (0.60-1.20); Glomerular Filtration Rate >60 (60-); Glucose, Blood 131 mg/dL (70-99); Potassium, Blood 4.4 mmol/L (3.5-5.5); Sodium, Blood 136 mmol/L (136-145)
--- NOTE | 2019-06-16 06:22 | NUR ---
SHIFT SUMMARY: SEE PREVIOUS NOTES. PT IS NOW ON HUMITIFIED AIR, THROUGH TRACH, SPO2 ABOVE 95% PT'S TRACH IS HAVING SMALL AMOUNTS OF SEROSANGUINEOUS DISCHARGE TO SITE. TRACH CLEANED BY RT THIS SHIFT. GAUZE CHANGED TWICE THIS SHIFT. VITALS STABLE. PT HAS BEEN C/O PAIN TO SITE, PT MEDICATED PER EMAR. PT WAS ENCOURAGE TO USE URINAL AT BEDSIDE. PT HAS NOT VOIDED SINCE SURGERY. ORAL CARE GIVEN. PT HAS BEEN COMMUNICATING VIA PEN AND PAPER. PT WAS GIVEN EDUCATION REGARDING TRACH CARE. WILL CONTINUE TO MONITOR PT UNTIL REPORT IS GIVEN TO ONCOMING SHIFT.
--- NOTE | 2019-06-16 07:55 | NUR ---
Caroline of Care: Care assumed at 0700hr. Patient sleeping but easily roused to verbal stimuli. Alert and oriented x4, but non-verbal r/t newly placed tracheostomy/appliance. Easily communicated by mouthing words or writing. Denies dyspnea/SOB, spO2-93-96% on trach-collor with humidified air, VSS. C/o pain to tracheostomy site, effectively managed with x1 dose of prn Dilaudid at this time. Trach site shows small amount of serosanguineous drainage . Trach site cleansed new spit gauze and trach tie applied, sutures remain in place. Peripheral IV's x2 patent and intact. Patient denies need to void, but urinal at bedside. Plan to discuss use of maintenance fluids until patient is able to have PO intake. Call light in reach, makes needs known. Will continue to monitor.
--- NOTE | 2019-06-16 18:18 | NUR ---
Shift Summary: No significant changes throughout shift. Patient VS remain stable, spO2-96-98% on trach collar with humidified air. Tracheostomy site had serosanguineous drainage this morning but began bleeding after coughing spell this morning. Trach site has since bleed off/on throughout shift, small amounts. Trach care performed several times throughout shift, including change of split gauze and trach tie. Prn Dilaudid given x1, along with scheduled Toradol effective to manage c/o pain to tracheostomy. Voding using urinal in bed without difficulty. Patient also transferred to chair and toilet in room without difficulty, 1-person assist with lines, and cords. Call light in reach, makes, needs known. Call placed to Dr. Givens this evening. Received orders to transfer patient to PCu status. Also received update on transfer to [facility], informed that the patient would not be transferred to [facility]. Patient to be discharged home and see physician at [facility] as outpatient.
--- NOTE | 2019-06-16 19:15 | NUR ---
ASSUME CARE: BEDSIDE REPORT RECIEVED FROM HARVEY OFFGOING RN. MONITOR INTACT SHOWING SINUS RICA. HEART RATE 40'S-50'S. LUNG SOUNDS CLEAR REMAINS ON TRACH COLLAR WITH HUMIDITY CO NAUSEA. COMMUNICATES WITH WRITTEN NOTES AND MOUTHING WORDS. ON PHONE COMMUNICATING WITH TEXTING AND WRITTEN NOTES. ABDOMEN SOFT WITH BOWEL SOUNDS FOUR QUADS. MEDICATED WITH PHENERGAN 25MG IV.SX SELF WITH CLEAR THIN ORAL SECREATIONS. CONTINUE TO MONITOR AND REPORT CHANGE IN PATIENT CONDITION.
--- NOTE | 2019-06-16 20:15 | NUR ---
ANDRAE REAL ESTATE LEGAL SECRETARY GIVEN UPDATE ORDERS NOTED.
--- NOTE | 2019-06-17 07:37 | NUR ---
CARE ASSUMED CARE AND REPORT ASSUMED FROM FABRIZIO CEVALLOS. PT SLEEPING BUT EASILY AWAKENS. VSS. NSR, HR 40S. BP WNL. AFEBRILE. TRACH COLLAR SECURED WITH HEATED AIR. PT ABLE TO SUCTION HIMSELF AND SPITS UP OCCASSIONALLY. MIV NS INFUSING AT 125 ML/HR PER ORDER. PT NPO. WILL MONITOR.
--- NOTE | 2019-06-17 11:28 | NUR ---
REASSESSMENT PT GIVEN PHENERGAN THIS AM FOR NAUSEA AND SINCE THEN HAS BEEN SLEEPING EXCEPT WHEN GOING DOWN FOR BARRIUM SWALLOW EVAL. PT WHEELED DOWN BY TRANSPORT FOR BARRIUM SWALLOW EVAL AND FAILED DUE TO VOMITING. PT NOW BACK IN BED SLEEPING. MOTHER AND BABY MOM UPDATED ON CURRENT STATUS. VSS. REMAINS IN NSR, HR 40-50S WITH NML BP. TRACH DRESSING CHANGED MULTIPLE TIMES. WILL CONTINUE TO MONITOR.
--- NOTE | 2019-06-17 14:52 | NUR ---
FURTHER PLAN SPOKE WITH MD COLLINS ON PHONE REGARDING PTS FAILED BARIUM SWALLOW AND FURTHER PLAN WITH TRACH. SPEECH PATHOLOGIST LIBRADO ALSO SPOKE WITH AND REVEALED TEST RESULTS. PER MD, PLAN IS CHANGE TO UNCUFFED, FENESTRATED TRACH TOMORROW 06/17 THIS WILL BE 3 DAYS POST INSERTION. PT HAS NOT HAD ANY INTAKE OF NUTRITION SINCE ARRIVAL; MD COLLINS TO DISCUSS WITH PT POSSIBILITY OF G-TUBE FOR TRIAL COURT JUSTICE NUTRITION. SPOKE WITH CASE MANAGEMENT ABOUT PTS CURRENT HOME SITUATION AND NEED TO INITIATE HOME TRACH CARE. POSTAL DELIVERY OFFICER MEI STATES THAT PT WILL NEED TO ATTEND [facility] JUSTICE CARE FOR TRACH TRAINING BEFORE GOING HOME. BOTH RNS DISCUSSED THIS NEED FOR TRACH CARE AND VIBRA AT BEDSIDE WITH PT. PT AGREES WITH PLAN TO ATTEND VIBRA AND AGREES WITH POSSIBLE G-TUBE INSERTION.
--- NOTE | 2019-06-17 18:16 | NUR ---
SHIFT SUMMARY PT INDEPENDENTLY UP/DOWN IN ROOM THROUGHTOUT SHIFT. VSS. CONTINUES TO HAVE EPISODES OF VOMITING AFTER HE COUGHS HEAVILY AND SPITS UP. TRACH DEEP SUCTIONED ONE TIME DURING SHIFT. WAS TAKEN DOWN FOR BARIUM SWALLOW AND FAILED. SEE NOTE FOR PLAN REGARDING VIBRA AND FURTHER CARE. PHENERGAN IVP GIVEN FOR PAIN. PT CONTINUES TO HAVE MIV INFUSE AT 125 ML/HR PER ORDER. WILL GIVE BEDSIDE, HANDOFF REPORT TO NOC RN.
--- NOTE | 2019-06-17 20:00 | NUR ---
ASSUMED CARE OF PT AT 1915. REPORT RECEIVED. PT PRESENTS IN BED. TRACH WITH COLLAR AND HUMIDIFIED WARMED FLOW AT 35 PERCENT FIO2. PT HAS PER REPORT BEEN INDEPENDENT IN ROOM. WILL REVIEW CHART AND PLAN OF CARE FOR THIS PT. OF NOTE: PT HAS REQUESTED MEDICATIONS FOR NAUSEA. DID INFORM PT THAT IT WAS TOO EARLY FOR PHENERGAN. PT UPSET, AND WOULD NOT ACTIVELY PARTICIPATE IN CARE OR ASSESSMENT. INFORMED PT WHEN HE COULD HAVE MED. PT ABLE TO SELF SUCTION HIMSELF.
--- NOTE | 2019-06-17 23:00 | NUR ---
PT REMAINS VERY CLOSED OFF FROM CARE. WILL NOT MAKE EYE CONTACT. HAVE MEDICATED PT WITH PHENERGAN WHEREAS HE IS ABLE TO SLEEP SOME. PT HAS BEEN UP TO TOILET INDEPENDENTLY AND VOIDS WITHOUT ISSUES.
--- NOTE | 2019-06-18 06:47 | NUR ---
PT HAS BEEN MEDICATED WITH PHENERGAN 12.5 THIS AM, AND ADDITIONAL 12.5 MG AFTERWARDS SECONDARY TO CONTINUED NAUSEA. PT WORRIED THAT HE WAS HAVING BLOOD IN HIS EMEMSIS. NO MONTRELL BLOOD NOTED. TEACHING DONE ON NEWNESS OF TRACH AND BLEEDING POTENTIAL. ALSO NAUSEA CAN BE INCREASED IF HE HAS BLOOD IN STOMACHE. HE DOES ASK ABOUT PEG TUBE, AND EXPRESSES IN WRITING THAT HE WANTS TO STOP HURTING AND HAVING NAUSEA. PT'S MOTHER PHONES THIS AM, AND REQUESTS A RETURN CALL AFTER DR COLLINS HAS BEEN IN TO SEE PT. WILL PASS THIS ALONG TO AM NURSE. WILL CONTINUE TO MONITOR PT, AND WILL REPORT OFF TO ONCOMING RN.
--- NOTE | 2019-06-18 09:00 | NUR ---
ASSESSMENT- PT AWAKE, ALERT, COOPERATIVE, ABLE TO WRITE NOTES AND MOUTH WORDS TO COMMUNICATE. C/O UPPER ABDOMINAL DISCOMFORT, C/O "FEELING LIKE HE IS IN A SWIMMING POOL" WITH SECRETIONS IN MOUTH. ORAL SUCTION AT BEDSIDE, USING BY SELF. SMALL AMOUNT EMESIS, C/O NAUSEA. RX WITH REGLAN, HYPOACTIVE BOWEL SOUNDS, ABDOMEN ROUNDED, TENDER. ATTEMPT ORAL CARE, EVEN WITH PT DOING OWN CARE WITH SWAB FREQUENT GAGGING. STATES UNABLE TO REST. REVIEWED PLAN OF CARE, QUESTIONS ANSWERED. TRACH AREA WITH CRUSTED SECRETIONS, CLEANED. LUNGS CLEAR, TRACH MASK FOR HUMIDITY, ROOM AIR. IV NS AT 125 CC/HR, TWO PIV INTACT. MOVING SELF IN BED.
--- NOTE | 2019-06-18 10:15 | NUR ---
DR. RAND HERE-UPDATED. PT GIVEN PROTONIX AND ZOFRAN AND IS ABLE TO REST NOW WITHOUT ANY DISTRESS. DR. RAND EXPLAINED PLAN OF CARE WITH PT, TALKED WITH DR. COLLINS. PLAN TO REPLACE TRACH TODAY WITH NON CUFFED FENESTRATED TRACH. REMAINS NPO-DISCUSSION WITH SPEECH THERAPY. PIV NUTRITION CONSULT ORDERED.
--- NOTE | 2019-06-18 12:24 | NUR ---
PT STILL SLEEPING COMFORTABLY, NO COMPLAINTS, RESPIATIONS UNLABORED. SINUS RICA, BP STABLE. WILL CONTINUE TO MONITOR
--- NOTE | 2019-06-18 13:58 | NUR ---
PT UPDATE: TX'D PT FOR NAUSEA WITH ZOFRAN IVP AND REGLAN PRN GIVEN PER ORDERS.
--- NOTE | 2019-06-18 14:37 | NUR ---
PT AWAKE, UP TO STAND AT SIDE OF BED WITH STANDBY ASSIST, TOLERATED WELL. REFUSED CHAIR, REFUSED ORAL CARE. RUBBING ABDOMEN-REQUEST NAUSEA RX-GIVEN REGLAN AND ZOFRAN. VOIDING. NS TKO, CLINIMIX AND LIPIDS STARTED PER ORDERS FOR NUTRTITION.
--- NOTE | 2019-06-18 18:16 | NUR ---
PT AWAKE, SITTING UP IN BED. SPITTING SOME ORAL SECRETIONS BUT NO EMESIS. SUCTION AT BEDSIDE. DENIES PAIN. CONTINUOUS SATURATIONS MONITORED, STABLE. DENIES ANY SOB. RESPIRATIONS UNLABORED
--- NOTE | 2019-06-18 19:00 | NUR ---
ASSUMED CARE NOTE: ASSUMED CARE OF PT AT 1900, RECEVIED REPORT FROM SHOSHANA CEVALLOS. PT IS ALERT AND ORIENTEDX3. PT'S LUNG SOUNDS ARE CLEAR. PT IS ON ROOM AIR, STATING AT 97% TRACH IS CRUSTED OVER, SLIGHT REDDNESS NOTED TO TRACH SIGHT, TRACH MASK FOR HUMITITY. PT C/O TRACH FEELING LIKE IT'S "CLOGGED" RT NOTIFED. PT C/O MOUTH DRYNESS, ORAL CARE GIVEN. PT USSES URINAL AT BEDSIDE.PT IN SINUS RICA WITH HR IN THE 30'S, ASYMTOMATIC. WILL CONTINUE TO MONITOR PT T/O SHIFT.
--- NOTE | 2019-06-18 20:47 | NUR ---
UPDATE: TRACH INNER CANNULA CHANGED AND CARED FOR BY RT. VITALS STABLE. ORAL CARE PROVIDED. PT USED BEDSIDE TOILET.
--- NOTE | 2019-06-18 23:15 | NUR ---
GAVE REPORT TO KALLIE CEVALLOS, WHOM WILL BE TAKING OVER CARE FOR THIS PT.
--- NOTE | 2019-06-19 02:08 | NUR ---
06/17 @ 22:30 ASSUMED CARE OF PATIENT FROM [facility]. VSS, NO C/O PAIN. AGREE WITH PREVIOUSLY CHARTED ASSESSMENT. WILL CONTINUE TO MONITOR.
[2019-06-19 03:48] LABS: BASOPHILS ABSOLUTE AUTO 0.01 K/mm3 (0.00-0.23); BASOPHILS PERCENT AUTO 0 % (0-2); EOSINOPHILS ABSOLUTE AUTO 0.02 K/mm3 (0.00-0.68); EOSINOPHILS PERCENT AUTO 0 % (0-6); Hematocrit 37.6 % (37.0-53.0); Hemoglobin 12.7 g/dL (13.5-17.5); IMMATURE GRAN ABSOLUTE AUTO 0.07 K/mm3 (0.00-0.10); IMMATURE GRAN PERCENT AUTO 1 % (0-1); LYMPHOCYTES ABSOLUTE AUTO 3.44 K/mm3 (0.84-5.20); LYMPHOCYTES PERCENT AUTO 27 % (21-46); MONOCYTES ABSOLUTE AUTO 1.29 K/mm3 (0.16-1.47); MONOCYTES PERCENT AUTO 10 % (4-13); Mean Corpuscular HGB 31.2 pg (26.0-34.0); Mean Corpuscular HGB Conc 33.8 g/dL (31.5-36.5); Mean Corpuscular Volume 92 fL (80-100); NEUTROPHILS ABSOLUTE AUTO 7.78 K/mm3 (1.96-9.15); NEUTROPHILS PERCENT AUTO 62 % (41-73); Platelet Count 315 K/mm3 (150-400); RDW Coefficient Variation 11.8 % (11.7-14.2); Red Blood Cell Count 4.07 M/mm3 (4.30-5.90); White Blood Cell Count 12.61 K/mm3 (4.00-11.30)
[2019-06-19 04:09] LABS: Anion Gap 5 mmol/L (6-16); Blood Urea Nitrogen 18 mg/dL (8-24); Bun/Creatinine Ratio 22.9 (12.0-20.0); CO2, Blood 28 mmol/L (21-32); Calcium, Blood 8.1 mg/dL (8.5-10.1); Chloride, Blood 107 mmol/L (98-108); Creatinine, Blood 0.79 mg/dL (0.60-1.20); Glomerular Filtration Rate >60 (60-); Glucose, Blood 99 mg/dL (70-99); Magnesium, Blood 2.1 mg/dL (1.6-2.4); Phosphorus, Blood 2.8 mg/dL (2.5-4.9); Potassium, Blood 3.6 mmol/L (3.5-5.5); Sodium, Blood 140 mmol/L (136-145); Triglycerides 184 mg/dL (30-140)
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
--- NOTE | 2019-06-19 12:00 | NUR ---
DR COLLINS AT BEDSIDE TO REPLACE TRACH. SIZE 8 UNCUFFED TRACH PLACED s DIFFICULTY. SPEAKING VALVE PROVIDED BY NEGRO CEVALLOS.
--- NOTE | 2019-06-19 16:22 | NUR ---
SHIFT SUMMARY FROM ICU-PT TRANSFERRED TO PCU AT 1620. REPORT TO ADRIA CEVALLOS. ASSUMED CARE OF PT AT 0700. REPORT FROM KALLIE CEVALLOS. PT A&OX 4. COMMUNICATED c NOTEPAD PRIOR TO TRACH CHANGE. PT C/O INTERMITTANT PAIN TO TRACH SITE WHEN COUGHING. REFUSING TYLENOL SUPPOSITORY. PT INTERMITTANTLY ON TRACH COLLAR, HUMIDIFIED AIR. LUNGS CLEAR. SB ON MONITOR, RATE 35-45, ASYMPTOMATIC. MAEW. CLIMAMIX AND LIPIDS INFUSING THIS SHIFT. PT REMAINS NPO. WILL HAVE SWALLOW EVAL TOMORROW. TRACH CHANGED BY DR COLLINS TODAY s DIFFICULTIES. SIZE 8 UNCUFFED. VSS.
--- NOTE | 2019-06-19 18:45 | NUR ---
SHIFT SUMMARY... PT ARRIVED ON UNIT APROX 1630, PT IS A&Ox4 AND IND IN THE ROOM. TRACH IS PRESENT, DRESSING IS C/D/I. VS STABLE. LIPIDS RUNNING PER ORDERS. PT HAS BEEN IND UP TO THE BATHROOM TO VOID. TELE WAS D/C'D PER PROVIDER ORDER. CALL LIGHT IN REACH WILL CONTINUE TO MONITOR UNTIL REPORT IS GIVEN TO ONCOMING RN.
--- NOTE | 2019-06-20 01:18 | NUR ---
UPDATE PT A&O; PLEASANT & COMPLIANT W/CARE; PT REFUSED TELE DURING DAY SHIFT AND DC ORDERED PLACED; Q6 CBG STABLE; CLINIMIX INFUSING PER EMAR; RT AT BEDSIDE TO PERFORM TRACH SUCTION AND CLEANING; PT C/O OF NAUSEA ZOFRAN GIVEN; PT INDEPENDENT IN ROOM AND WALKED W/ THIS RN AROUND UNIT; NOCTURNIST CHANGED STATUS TO MED FLOOR AND PT PREPARED TO TRANSFER; REPORT GIVEN TO [facility]; PT WAS TRANSFERED W/ ALL BELONGINGS AND MOVED TO [facility].
--- NOTE | 2019-06-20 01:30 | NUR ---
06/20/19 0050 PT ARRIVED FROM PCU VIA AMBULATORY WITH BELONGINGS. ORIENTED TO ROOM. REMINDED THAT HE IS NPO. ORAL SWABS FOR ORAL CARE GIVEN. STATES HE HAS BEEN VOIDING IN TOILET THIS SHIFT IN PCU. TRACH IN PLACE WITH HUMIDIFIER. CALL SYSTEM SHOWN. DENIES PAIN JUST SLIGHT UPSET STOMACH. OCC. COUGH AND PUT IT IN TISSUE.
[2019-06-20 06:09] LABS: Anion Gap 6 mmol/L (6-16); Blood Urea Nitrogen 16 mg/dL (8-24); CO2, Blood 29 mmol/L (21-32); Calcium, Blood 8.3 mg/dL (8.5-10.1); Chloride, Blood 103 mmol/L (98-108); Glomerular Filtration Rate >60 (60-); Glucose, Blood 104 mg/dL (70-99); Magnesium, Blood 2.2 mg/dL (1.6-2.4); Phosphorus, Blood 3.7 mg/dL (2.5-4.9); Potassium, Blood 3.6 mmol/L (3.5-5.5); Sodium, Blood 138 mmol/L (136-145)
--- NOTE | 2019-06-20 07:29 | NUR ---
06/20/19 0545 PT AWAKENED FOR AM MED , VITALS AND BLOOD SUGAR CHECK. DROWSY AND WANTING TO SLEEP MORE. INFORMED HIM THAT HIS MOTHER CALLED REGARDING AN UPDATE AND WAS GIVEN ONE. VITALS AND BLOOD SUGAR STABLE. TRACH INTACT WITHOUT SECRETIONS AT THIS TIME. NPO. PLAN REPEAT SWALLOW EVAL. TODAY.
--- NOTE | 2019-06-20 19:07 | NUR ---
SHIFT SUMMARY: NO ACUTE CHANGES TO REPORT THIS SHIFT. PT HX HETH, HEROIN, PTSD; CALM & COOPERATIVE WITH CARE. TRACHEOSTOMY 06/14; TRACH CARE EDUCATION BY R/T WITH PATIENT AND FAMILY THIS SHIFT. SPEECH EVAL THIS SHIFT; DIET ADVANCED TO REGULAR c THIN LIQUIDS, NO STRAWS, PO MEDS IN APPLESAUCE. PT INDEPENDENT IN ROOM. EXPECTED D/C HOME 06/20. REPORT GIVEN TO ONCOMING RN.
[2019-06-21 05:05] LABS: Anion Gap 6 mmol/L (6-16); Blood Urea Nitrogen 12 mg/dL (8-24); Bun/Creatinine Ratio 14.8 (12.0-20.0); CO2, Blood 27 mmol/L (21-32); Calcium, Blood 8.7 mg/dL (8.5-10.1); Chloride, Blood 102 mmol/L (98-108); Creatinine, Blood 0.81 mg/dL (0.60-1.20); Glomerular Filtration Rate >60 (60-); Glucose, Blood 109 mg/dL (70-99); Potassium, Blood 3.9 mmol/L (3.5-5.5); Sodium, Blood 135 mmol/L (136-145)
--- NOTE | 2019-06-21 05:36 | NUR ---
SHIFT SUMMARY: JEFFY IS A&OX4. HE IS TOLERATING PO INTAKE, ALTHOUGH HE WAS NOT ABLE TO SWALLOW THE KEPPRA PILLS AND THE LIQUID WAS OBTAINED INSTEAD WHICH HE STATED TASTED TERRIBLE. HE HAS COUGHED UP SOME MUCUS, A SMALL AMOUNT WAS PINK TINGED. HE STATES THAT HE HAS HAD SOME STOMACH CRAMPS SINCE BEING ADMITTED TO THE HOSPITAL. HE THOUGHT THAT THE ZOFRAN WAS MORE HELPFUL THAN THE REGLAN, AND A NEW ORDER WAS OBTAINED FROM THE DENTAL ASSISTANT TEACHER PHYSICIAN. HE IS INDEPENDENT IN THE ROOM. HE IS LYING COMFORTABLY IN BED WITH THE CALL LIGHT IN REACH. WILL REPORT TO DAY SHIFT RN.
--- NOTE | 2019-06-21 06:27 | NUR ---
PT WOKE UP WITH VOMITING. STATES HE "FEELS LIKE CRAP". SANTIAGOAN GIVEN IV PUSH. HE ALSO STATES THAT HE HAS NOT HAD A BOWEL MOVEMENT SINCE HE WAS ADMITTED. ASKED ABOUT HAVING A BM ON THE 6TH PER CHARTING, PT DENIES. HE STATES THAT HE USUALLY HAS A BM EVERY MORNING.
[2019-06-21] MEDS ORDERED: SPRITAM1000 MG PO (10:03)
--- NOTE | 2019-06-21 10:51 | NUR ---
UPDATED DR. COLLINS ( ON PHONE) ON RESULTS OF SWALLOW EVAL
--- NOTE | 2019-06-21 15:11 | NUR ---
PT DISCHARGED FROM THE UNIT. MEDICATION FAXED TO [facility]. IV'S REMOVED. DISCHARGE INSTRUCTIONS REVIEWED. PT'S MOTHER CAME IN TO BE EDUCATED FROM RT. EDUCATED ABOUT TRACH CARE AND SUCTIONING. HUMIDIFIER AND SUCTION ORDERED FROM [facility], THEY WILL DELIVER TO PT HOME, CONFIRMED ADDRESS WITH PT AND WITH [facility]. PT LEFT UNIT VIA WHEEL CHAIR MOTHER WILL DRIVE HOME.
== END 2019-06-21 13:15 | disposition home or self-care (01) | DRG 4 ==
LOC: ER 15:47 → ICUW 20:25 → MEDS 20:25 → ICUE 20:25 → PCU 06-19 16:28 → MEDS 06-20 00:54 → ENPENDDIS 06-21 10:28 → MEDS 06-21 13:15
PROVIDERS: Internal Medicine; Nurse Practitioner Acute Care; Otolaryngology; Physician Assistant; ADMIT Internal Medicine
PROC: 0B110F4 Bypass Trachea to Cutaneous with Tracheostomy Device, Open Approach (ICD-10-PCS; principal; 2019-06-15 20:00)
DX: J95.89 Other postprocedural complications and disorders of respiratory system, not elsewhere classified (principal); J96.01 Acute respiratory failure with hypoxia; F43.10 Post-traumatic stress disorder, unspecified; F90.9 Attention-deficit hyperactivity disorder, unspecified type; J45.909 Unspecified asthma, uncomplicated; F17.210 Nicotine dependence, cigarettes, uncomplicated; G40.909 Epilepsy, unspecified, not intractable, without status epilepticus; I10 Essential (primary) hypertension; D72.829 Elevated white blood cell count, unspecified; F31.9 Bipolar disorder, unspecified
CPT/HCPCS: 31502; 31575; 31720; 36415; 36600; 70360; 70490; 71045; 74230; 80048; 80053; 82803; 82947; 83735; 84100; 84478; 84484; 85025; 92526; 92610; 92611; 93005; 93010; 94640; 94760; 96365-59; 96366-59; 96375-59; 99285-25; C9113; J0690; J1100; J1170; J1885; J1953; J2001; J2060; J2250; J2405; J2550; J2704; J2765; J2920; J2930; J3010; J3480; J7030

== ENCOUNTER 2019-06-25 16:31 | Emergency (ER) | payer MEDICARE, OTHER ==
[~2019-06-25] VITALS: Ht 167.6 cm; Wt 73.9 kg
[~2019-06-25 16:31] MED LIST changes: +SPRITAM1000 MG PO
[2019-06-25 17:38] LABS: BASOPHILS ABSOLUTE AUTO 0.03 K/mm3 (0.00-0.23); BASOPHILS PERCENT AUTO 0 % (0-2); EOSINOPHILS ABSOLUTE AUTO 0.19 K/mm3 (0.00-0.68); EOSINOPHILS PERCENT AUTO 1 % (0-6); Hematocrit 43.4 % (37.0-53.0); Hemoglobin 15.3 g/dL (13.5-17.5); IMMATURE GRAN ABSOLUTE AUTO 0.06 K/mm3 (0.00-0.10); IMMATURE GRAN PERCENT AUTO 0 % (0-1); LYMPHOCYTES ABSOLUTE AUTO 2.87 K/mm3 (0.84-5.20); LYMPHOCYTES PERCENT AUTO 22 % (21-46); MONOCYTES ABSOLUTE AUTO 1.26 K/mm3 (0.16-1.47); MONOCYTES PERCENT AUTO 9 % (4-13); Mean Corpuscular HGB 31.4 pg (26.0-34.0); Mean Corpuscular HGB Conc 35.3 g/dL (31.5-36.5); Mean Platelet Volume 9.4 fL (9.1-12.4); NEUTROPHILS ABSOLUTE AUTO 8.95 K/mm3 (1.96-9.15); NEUTROPHILS PERCENT AUTO 67 % (41-73); Platelet Count 433 K/mm3 (150-400); RDW Coefficient Variation 11.7 % (11.7-14.2); RDW Standard Deviation 37.5 fL (35.1-46.3); Red Blood Cell Count 4.88 M/mm3 (4.30-5.90); White Blood Cell Count 13.36 K/mm3 (4.00-11.30)
[2019-06-25 17:42] LABS: Mean Corpuscular Volume 89 fL (80-100)
[2019-06-25 17:57] LABS: Alanine Aminotransfer (ALT/SGP 40 U/L (12-78); Albumin, Blood 3.5 g/dL (3.4-5.0); Albumin/Globulin Ratio 0.7 (0.8-1.8); Alk Phos 90 U/L (50-136); Anion Gap 5 mmol/L (6-16); Aspartate Aminotrans (AST/SGOT 11 U/L (12-37); Bilirubin, Total 0.4 mg/dL (0.1-1.0); Blood Urea Nitrogen 13 mg/dL (8-24); Bun/Creatinine Ratio 13.6 (12.0-20.0); CO2, Blood 32 mmol/L (21-32); Calcium, Blood 9.7 mg/dL (8.5-10.1); Chloride, Blood 96 mmol/L (98-108); Creatinine, Blood 0.96 mg/dL (0.60-1.20); Globulin, Blood 4.7 g/dL (2.2-4.0); Glomerular Filtration Rate >60 (60-); Glucose, Blood 94 mg/dL (70-99); Potassium, Blood 4.4 mmol/L (3.5-5.5); Sodium, Blood 133 mmol/L (136-145); Total Protein, Blood 8.2 g/dL (6.4-8.2)
[2019-06-25 18:01] LABS: Source, Urine Voided
[2019-06-25 18:11] LABS: Bilirubin, Urine Neg (Neg); Blood, Urine Neg (Neg); Glucose Qualitative, Urine 2+ (Neg); Ketones, Urine 1+ (Neg); Leukocyte Esterase, Urine Neg (Neg); Nitrite, Urine Neg (Neg); Protein, Urine 1+ (Neg); Urobilinogen, Urine NORM (Normal)
[2019-06-25 18:16] LABS: Appearance, Urine Clear (Clear); Color, Urine Yellow (P-Yellow)
[2019-06-25 18:32] LABS: U Amphetamine Screen Not Detected; U Barbituate Screen Not Detected; U Benzodiazapine Screen Not Detected; U Buprenorphine Screen Not Detected; U Cannabinoids Screen Not Detected; U Cocaine Screen Not Detected; U Methadone Screen Not Detected; U Methamphetamine Screen Not Detected; U Opiates Screen Not Detected; U Oxycodone Screen Not Detected; U Phencyclidine Screen Not Detected; U Propoxyphene Screen Not Detected
[2019-06-25] MEDS ORDERED: Miralax17 GM PO (20:04)
[2019-06-25] MEDS ORDERED: Kristalose20 GM PO (20:04)
== END 2019-06-25 20:14 | disposition home or self-care (01) ==
LOC: ER 16:31
PROVIDERS: Emergency Medicine
DX: K59.00 Constipation, unspecified (principal); J45.909 Unspecified asthma, uncomplicated; I10 Essential (primary) hypertension; F43.10 Post-traumatic stress disorder, unspecified; F90.9 Attention-deficit hyperactivity disorder, unspecified type; F32.9 Major depressive disorder, single episode, unspecified; F17.210 Nicotine dependence, cigarettes, uncomplicated; Z91.038 Other insect allergy status; Z88.8 Allergy status to other drugs, medicaments and biological substances; Z93.0 Tracheostomy status; Z79.899 Other long term (current) drug therapy
CPT/HCPCS: 36415; 74018; 74177; 80053; 83690; 84443; 85025; 96361; 96374-59; 99284-25; J2405; J7030; J7120; Q9967

== ENCOUNTER 2019-11-22 15:51 | Emergency (ER) | payer MEDICARE, OTHER ==
[~2019-11-22] VITALS: Ht 170.2 cm; Wt 86.2 kg
[~2019-11-22 15:51] MED LIST changes: +Kristalose20 GM PO; +Miralax17 GM PO
[2019-11-22] MEDS ORDERED: LEVE500 PO (16:07)
[2019-11-22 16:29] LABS: BASOPHILS ABSOLUTE AUTO 0.02 K/mm3 (0.00-0.23); BASOPHILS PERCENT AUTO 0 % (0-2); EOSINOPHILS PERCENT AUTO 1 % (0-6); Hematocrit 43.3 % (37.0-53.0); Hemoglobin 14.7 g/dL (13.5-17.5); IMMATURE GRAN ABSOLUTE AUTO 0.03 K/mm3 (0.00-0.10); IMMATURE GRAN PERCENT AUTO 0 % (0-1); LYMPHOCYTES ABSOLUTE AUTO 2.92 K/mm3 (0.84-5.20); LYMPHOCYTES PERCENT AUTO 42 % (21-46); MONOCYTES ABSOLUTE AUTO 0.53 K/mm3 (0.16-1.47); MONOCYTES PERCENT AUTO 8 % (4-13); Mean Corpuscular HGB 30.2 pg (26.0-34.0); Mean Corpuscular HGB Conc 33.9 g/dL (31.5-36.5); Mean Corpuscular Volume 89 fL (80-100); Mean Platelet Volume 11.3 fL (9.1-12.4); NEUTROPHILS ABSOLUTE AUTO 3.41 K/mm3 (1.96-9.15); NEUTROPHILS PERCENT AUTO 49 % (41-73); Platelet Count 284 K/mm3 (150-400); RDW Coefficient Variation 12.3 % (11.7-14.2); RDW Standard Deviation 40.4 fL (35.1-46.3); Red Blood Cell Count 4.86 M/mm3 (4.30-5.90); White Blood Cell Count 7.01 K/mm3 (4.00-11.30)
[2019-11-22 18:04] LABS: Alanine Aminotransfer (ALT/SGP 33 U/L (12-78); Albumin, Blood 3.9 g/dL (3.4-5.0); Alk Phos 69 U/L (50-136); Anion Gap 7 mmol/L (6-16); Aspartate Aminotrans (AST/SGOT 21 U/L (12-37); Bilirubin, Total 0.4 mg/dL (0.1-1.0); Blood Urea Nitrogen 10 mg/dL (8-24); Bun/Creatinine Ratio 10.6 (12.0-20.0); CO2, Blood 27 mmol/L (21-32); Calcium, Blood 9.1 mg/dL (8.5-10.1); Chloride, Blood 107 mmol/L (98-108); Creatinine, Blood 0.94 mg/dL (0.60-1.20); Globulin, Blood 3.9 g/dL (2.2-4.0); Glomerular Filtration Rate >60 (60-); Glucose, Blood 119 mg/dL (70-99); Potassium, Blood 3.9 mmol/L (3.5-5.5); Sodium, Blood 141 mmol/L (136-145); Total Protein, Blood 7.8 g/dL (6.4-8.2)
== END 2019-11-22 18:34 | disposition home or self-care (01) ==
LOC: ER 15:51
PROVIDERS: Emergency Medicine
DX: G40.909 Epilepsy, unspecified, not intractable, without status epilepticus (principal); I10 Essential (primary) hypertension; F32.9 Major depressive disorder, single episode, unspecified; J45.909 Unspecified asthma, uncomplicated; F17.210 Nicotine dependence, cigarettes, uncomplicated; Z79.899 Other long term (current) drug therapy; Z91.09 Other allergy status, other than to drugs and biological substances; Z91.030 Bee allergy status; Z88.8 Allergy status to other drugs, medicaments and biological substances
CPT/HCPCS: 36415; 80053; 85025; 93005; 93010; 99284-25; J1953

== ENCOUNTER 2019-11-23 23:17 | Emergency (ER) | payer MEDICARE, OTHER ==
[~2019-11-23] VITALS: Ht 170.2 cm; Wt 86.2 kg
[~2019-11-23 23:17] MED LIST changes: +LEVE500 PO
== END 2019-11-23 23:35 | disposition home or self-care (01) ==
LOC: ER 23:17
DX: G40.909 Epilepsy, unspecified, not intractable, without status epilepticus (principal); I10 Essential (primary) hypertension; F90.9 Attention-deficit hyperactivity disorder, unspecified type; J45.909 Unspecified asthma, uncomplicated; F32.9 Major depressive disorder, single episode, unspecified; F17.290 Nicotine dependence, other tobacco product, uncomplicated; Z91.030 Bee allergy status; Z88.8 Allergy status to other drugs, medicaments and biological substances; Z91.09 Other allergy status, other than to drugs and biological substances; Z79.899 Other long term (current) drug therapy
CPT/HCPCS: 82947; 99284

== ENCOUNTER 2019-11-24 08:43 | Emergency (ER) | payer MEDICARE, OTHER ==
[~2019-11-24] VITALS: Ht 170.2 cm; Wt 86.2 kg
== END 2019-11-24 09:48 | disposition left against medical advice (07) ==
LOC: ER 08:43
DX: S09.90XA Unspecified injury of head, initial encounter (principal); M54.2 Cervicalgia; G40.909 Epilepsy, unspecified, not intractable, without status epilepticus; I10 Essential (primary) hypertension; F32.9 Major depressive disorder, single episode, unspecified; F17.290 Nicotine dependence, other tobacco product, uncomplicated; F17.210 Nicotine dependence, cigarettes, uncomplicated; Z53.20 Procedure and treatment not carried out because of patient's decision for unspecified reasons; Z91.09 Other allergy status, other than to drugs and biological substances; Z91.030 Bee allergy status; Z88.8 Allergy status to other drugs, medicaments and biological substances; Z79.899 Other long term (current) drug therapy; V49.40XA Driver injured in collision with unspecified motor vehicles in traffic accident, initial encounter
CPT/HCPCS: 70450; 99284-25; A9270

== ENCOUNTER 2019-12-26 16:53 | Emergency (ER) | payer MEDICARE, OTHER ==
[~2019-12-26] VITALS: Ht 172.7 cm; Wt 77.1 kg
[2019-12-26 17:32] LABS: BASOPHILS ABSOLUTE AUTO 0.03 K/mm3 (0.00-0.23); BASOPHILS PERCENT AUTO 0 % (0-2); EOSINOPHILS ABSOLUTE AUTO 0.14 K/mm3 (0.00-0.68); EOSINOPHILS PERCENT AUTO 2 % (0-6); Hematocrit 39.9 % (37.0-53.0); Hemoglobin 14.1 g/dL (13.5-17.5); IMMATURE GRAN ABSOLUTE AUTO 0.02 K/mm3 (0.00-0.10); IMMATURE GRAN PERCENT AUTO 0 % (0-1); LYMPHOCYTES PERCENT AUTO 32 % (21-46); MONOCYTES ABSOLUTE AUTO 0.55 K/mm3 (0.16-1.47); MONOCYTES PERCENT AUTO 7 % (4-13); Mean Corpuscular HGB Conc 35.3 g/dL (31.5-36.5); Mean Corpuscular Volume 88 fL (80-100); Mean Platelet Volume 9.9 fL (9.1-12.4); NEUTROPHILS ABSOLUTE AUTO 4.91 K/mm3 (1.96-9.15); NEUTROPHILS PERCENT AUTO 60 % (41-73); Platelet Count 295 K/mm3 (150-400); RDW Coefficient Variation 12.4 % (11.7-14.2); RDW Standard Deviation 39.8 fL (35.1-46.3); Red Blood Cell Count 4.55 M/mm3 (4.30-5.90); White Blood Cell Count 8.25 K/mm3 (4.00-11.30)
[2019-12-26 17:39] LABS: Source, Urine Clean Catch
[2019-12-26 17:42] LABS: Appearance, Urine Clear (Clear); Bilirubin, Urine Neg (Neg); Blood, Urine Neg (Neg); Color, Urine Yellow (P-Yellow); Glucose Qualitative, Urine 1+ (Neg); Ketones, Urine Neg (Neg); Leukocyte Esterase, Urine Neg (Neg); Nitrite, Urine Neg (Neg); Protein, Urine Neg (Neg); Urobilinogen, Urine NORM (Normal)
[2019-12-26 17:49] LABS: Alanine Aminotransfer (ALT/SGP 36 U/L (12-78); Albumin, Blood 3.9 g/dL (3.4-5.0); Albumin/Globulin Ratio 1.1 (0.8-1.8); Alk Phos 78 U/L (50-136); Anion Gap 4 mmol/L (6-16); Aspartate Aminotrans (AST/SGOT 29 U/L (12-37); Bilirubin, Total 0.3 mg/dL (0.1-1.0); Blood Urea Nitrogen 15 mg/dL (8-24); Bun/Creatinine Ratio 16.2 (12.0-20.0); CO2, Blood 26 mmol/L (21-32); Calcium, Blood 8.9 mg/dL (8.5-10.1); Chloride, Blood 111 mmol/L (98-108); Creatinine, Blood 0.93 mg/dL (0.60-1.20); Globulin, Blood 3.5 g/dL (2.2-4.0); Glomerular Filtration Rate >60 (60-); Glucose, Blood 88 mg/dL (70-99); Potassium, Blood 4.2 mmol/L (3.5-5.5); Sodium, Blood 141 mmol/L (136-145); Total Protein, Blood 7.4 g/dL (6.4-8.2)
[2019-12-26 17:58] LABS: U Amphetamine Screen Not Detected; U Barbituate Screen Not Detected; U Benzodiazapine Screen Not Detected; U Buprenorphine Screen Not Detected; U Cannabinoids Screen Not Detected; U Cocaine Screen Not Detected; U Methadone Screen Not Detected; U Methamphetamine Screen Not Detected; U Opiates Screen Not Detected; U Oxycodone Screen Not Detected; U Phencyclidine Screen Not Detected; U Propoxyphene Screen Not Detected
== END 2019-12-26 18:06 | disposition home or self-care (01) ==
LOC: ER 16:53
PROVIDERS: Emergency Medicine
DX: G40.909 Epilepsy, unspecified, not intractable, without status epilepticus (principal); I10 Essential (primary) hypertension; F17.290 Nicotine dependence, other tobacco product, uncomplicated; Z91.030 Bee allergy status; Z88.8 Allergy status to other drugs, medicaments and biological substances; Z79.899 Other long term (current) drug therapy
CPT/HCPCS: 36415; 80053; 81003; 83735; 85025; 93005; 93010; 99284-25

== ENCOUNTER → 2020-01-02 14:18 | Emergency (ER) | payer MEDICARE, OTHER ==
[~2020-01-02] VITALS: Ht 170.2 cm; Wt 90.7 kg
[~2020-01-02 14:18] MED LIST changes: +VIMPAT10 MG/1 ML PO
[2020-01-02 15:14] LABS: BASOPHILS ABSOLUTE AUTO 0.02 K/mm3 (0.00-0.23); BASOPHILS PERCENT AUTO 0 % (0-2); EOSINOPHILS ABSOLUTE AUTO 0.06 K/mm3 (0.00-0.68); EOSINOPHILS PERCENT AUTO 1 % (0-6); Hematocrit 40.6 % (37.0-53.0); Hemoglobin 14.2 g/dL (13.5-17.5); IMMATURE GRAN ABSOLUTE AUTO 0.02 K/mm3 (0.00-0.10); IMMATURE GRAN PERCENT AUTO 0 % (0-1); LYMPHOCYTES ABSOLUTE AUTO 2.05 K/mm3 (0.84-5.20); LYMPHOCYTES PERCENT AUTO 23 % (21-46); MONOCYTES ABSOLUTE AUTO 0.44 K/mm3 (0.16-1.47); MONOCYTES PERCENT AUTO 5 % (4-13); Mean Corpuscular HGB 30.5 pg (26.0-34.0); Mean Corpuscular Volume 87 fL (80-100); Mean Platelet Volume 9.4 fL (9.1-12.4); NEUTROPHILS ABSOLUTE AUTO 6.23 K/mm3 (1.96-9.15); NEUTROPHILS PERCENT AUTO 71 % (41-73); Platelet Count 301 K/mm3 (150-400); RDW Coefficient Variation 12.5 % (11.7-14.2); RDW Standard Deviation 40.1 fL (35.1-46.3); Red Blood Cell Count 4.65 M/mm3 (4.30-5.90); White Blood Cell Count 8.82 K/mm3 (4.00-11.30)
[2020-01-02 15:34] LABS: Alanine Aminotransfer (ALT/SGP 33 U/L (12-78); Albumin, Blood 3.9 g/dL (3.4-5.0); Alk Phos 65 U/L (50-136); Anion Gap 5 mmol/L (6-16); Aspartate Aminotrans (AST/SGOT 22 U/L (12-37); Bilirubin, Total 0.4 mg/dL (0.1-1.0); Blood Urea Nitrogen 11 mg/dL (8-24); Bun/Creatinine Ratio 10.9 (12.0-20.0); CO2, Blood 29 mmol/L (21-32); Chloride, Blood 106 mmol/L (98-108); Creatinine, Blood 1.01 mg/dL (0.60-1.20); Globulin, Blood 3.8 g/dL (2.2-4.0); Glomerular Filtration Rate >60 (60-); Glucose, Blood 88 mg/dL (70-99); Potassium, Blood 4.1 mmol/L (3.5-5.5); Sodium, Blood 140 mmol/L (136-145); Total Protein, Blood 7.7 g/dL (6.4-8.2)
== END | disposition home or self-care (01) ==
LOC: ER 14:18
PROVIDERS: Physician Assistant
DX: G40.909 Epilepsy, unspecified, not intractable, without status epilepticus (principal); I10 Essential (primary) hypertension; F32.9 Major depressive disorder, single episode, unspecified; F17.290 Nicotine dependence, other tobacco product, uncomplicated; F17.210 Nicotine dependence, cigarettes, uncomplicated; Z79.899 Other long term (current) drug therapy; Z91.030 Bee allergy status; Z88.5 Allergy status to narcotic agent
CPT/HCPCS: 70450; 70486; 80053; 81000; 85025; 99284-25

== ENCOUNTER 2020-01-12 18:53 | Emergency (ER) | payer MEDICARE, OTHER ==
[~2020-01-12] VITALS: Ht 170.2 cm; Wt 92.1 kg
[2020-01-12] MEDS ORDERED: VIMPAT10 MG/1 ML PO (21:15)
== END 2020-01-12 21:33 | disposition home or self-care (01) ==
LOC: ER 18:53
DX: G40.909 Epilepsy, unspecified, not intractable, without status epilepticus (principal); I10 Essential (primary) hypertension; F17.210 Nicotine dependence, cigarettes, uncomplicated; Z79.899 Other long term (current) drug therapy; Z91.09 Other allergy status, other than to drugs and biological substances; Z91.030 Bee allergy status; Z88.8 Allergy status to other drugs, medicaments and biological substances
CPT/HCPCS: 99283; C9254

== ENCOUNTER 2020-01-21 12:46 | Emergency (ER) | payer MEDICARE, OTHER ==
[~2020-01-21] VITALS: Ht 170.2 cm; Wt 92.1 kg
[2020-01-21 13:15] LABS: Calcium, Ionized (POC) 1.18 mmol/L (1.10-1.46); Chloride (POC) 101 mmol/L (98-108); Creatinine (POC) 0.9 mg/dL (0.8-1.3); Glucose (ISTAT POC) 84 mg/dL (70-99); Hemoglobin (POC) 14.6 g/dL (13.5-17.5); Potassium (POC) 3.8 mmol/L (3.5-5.5); Sodium (POC) 138 mmol/L (135-148); Total CO2 (POC) 26 mmol/L (21-32)
== END 2020-01-21 13:45 | disposition home or self-care (01) ==
LOC: ER 12:46
PROVIDERS: Emergency Medicine
DX: G40.909 Epilepsy, unspecified, not intractable, without status epilepticus (principal); I10 Essential (primary) hypertension; F17.210 Nicotine dependence, cigarettes, uncomplicated; Z91.09 Other allergy status, other than to drugs and biological substances; Z91.030 Bee allergy status; Z88.8 Allergy status to other drugs, medicaments and biological substances; Z79.899 Other long term (current) drug therapy
CPT/HCPCS: 36415; 80047; 85014; 93005; 93010; 99284-25

== ENCOUNTER 2020-03-07 00:03 | Emergency (ER) | payer MEDICARE, OTHER ==
[~2020-03-07] VITALS: Ht 170.2 cm; Wt 93.0 kg
[~2020-03-07 00:03] MED LIST changes: +KEPPRA100 MG/1 M PO; -LEVE500 PO
[2020-03-07 00:47] LABS: BASOPHILS ABSOLUTE AUTO 0.03 K/mm3 (0.00-0.23); BASOPHILS PERCENT AUTO 0 % (0-2); EOSINOPHILS ABSOLUTE AUTO 0.16 K/mm3 (0.00-0.68); EOSINOPHILS PERCENT AUTO 2 % (0-6); Hematocrit 38.9 % (37.0-53.0); Hemoglobin 13.8 g/dL (13.5-17.5); IMMATURE GRAN ABSOLUTE AUTO 0.02 K/mm3 (0.00-0.10); IMMATURE GRAN PERCENT AUTO 0 % (0-1); LYMPHOCYTES ABSOLUTE AUTO 2.69 K/mm3 (0.84-5.20); LYMPHOCYTES PERCENT AUTO 31 % (21-46); MONOCYTES ABSOLUTE AUTO 0.77 K/mm3 (0.16-1.47); MONOCYTES PERCENT AUTO 9 % (4-13); Mean Corpuscular HGB 31.4 pg (26.0-34.0); Mean Corpuscular HGB Conc 35.5 g/dL (31.5-36.5); Mean Corpuscular Volume 88 fL (80-100); Mean Platelet Volume 9.7 fL (9.1-12.4); NEUTROPHILS ABSOLUTE AUTO 4.99 K/mm3 (1.96-9.15); NEUTROPHILS PERCENT AUTO 58 % (41-73); Platelet Count 282 K/mm3 (150-400); RDW Standard Deviation 39.3 fL (35.1-46.3); White Blood Cell Count 8.66 K/mm3 (4.00-11.30)
[2020-03-07 00:58] LABS: Alanine Aminotransfer (ALT/SGP 41 U/L (12-78); Albumin, Blood 3.6 g/dL (3.4-5.0); Alk Phos 68 U/L (50-136); Anion Gap 5 mmol/L (6-16); Aspartate Aminotrans (AST/SGOT 28 U/L (12-37); Bilirubin, Total 0.3 mg/dL (0.1-1.0); Blood Urea Nitrogen 14 mg/dL (8-24); Bun/Creatinine Ratio 15.2 (12.0-20.0); CO2, Blood 26 mmol/L (21-32); Calcium, Blood 8.8 mg/dL (8.5-10.1); Chloride, Blood 109 mmol/L (98-108); Creatinine, Blood 0.92 mg/dL (0.60-1.20); Globulin, Blood 3.5 g/dL (2.2-4.0); Glomerular Filtration Rate >60 (60-); Glucose, Blood 101 mg/dL (70-99); Potassium, Blood 4.1 mmol/L (3.5-5.5); Sodium, Blood 140 mmol/L (136-145); Total Protein, Blood 7.1 g/dL (6.4-8.2)
[2020-03-08] MEDS ORDERED: VIMPAT10 MG/1 M1 PO (21:19)
[2020-03-08] MEDS ORDERED: SODIUM CHLORIDE4 ML NEB (21:21)
== END 2020-03-07 01:52 | disposition home or self-care (01) ==
LOC: ER 00:03
PROVIDERS: Emergency Medicine
DX: G40.909 Epilepsy, unspecified, not intractable, without status epilepticus (principal); I10 Essential (primary) hypertension; Z91.09 Other allergy status, other than to drugs and biological substances; Z91.030 Bee allergy status; F17.210 Nicotine dependence, cigarettes, uncomplicated; Z79.899 Other long term (current) drug therapy
CPT/HCPCS: 70450; 80053; 80177; 82947; 85025; 93005; 93010; 99284-25; A9270

== ENCOUNTER 2020-03-08 19:19 | Emergency (ER) | payer MEDICARE, OTHER ==
[~2020-03-08] VITALS: Ht 170.2 cm; Wt 93.0 kg
[2020-03-08] MEDS ORDERED: VIMPAT10 MG/1 M1 PO (21:19)
[2020-03-08] MEDS ORDERED: SODIUM CHLORIDE4 ML NEB (21:21)
== END 2020-03-08 22:06 | disposition home or self-care (01) ==
LOC: ER 19:19
DX: G40.909 Epilepsy, unspecified, not intractable, without status epilepticus (principal); I10 Essential (primary) hypertension; F17.210 Nicotine dependence, cigarettes, uncomplicated; Z51.81 Encounter for therapeutic drug level monitoring; Z91.09 Other allergy status, other than to drugs and biological substances; Z91.030 Bee allergy status; Z88.8 Allergy status to other drugs, medicaments and biological substances; Z79.899 Other long term (current) drug therapy
CPT/HCPCS: 96365; 99284; A9270; C9254

== ENCOUNTER → 2020-03-12 | Outpatient (CLI) | payer MEDICARE, OTHER ==
[~2020-03-12] MED LIST changes: +OMEP20ER PO; +SODIUM CHLORIDE4 ML NEB; +TOPI25 PO; +VIMPAT10 MG/1 M1 PO
[2020-03-12 19:01] LABS: BASOPHILS ABSOLUTE AUTO 0.02 K/mm3 (0.00-0.23); BASOPHILS PERCENT AUTO 0 % (0-2); EOSINOPHILS ABSOLUTE AUTO 0.11 K/mm3 (0.00-0.68); EOSINOPHILS PERCENT AUTO 2 % (0-6); Hematocrit 41.5 % (37.0-53.0); Hemoglobin 14.5 g/dL (13.5-17.5); IMMATURE GRAN ABSOLUTE AUTO 0.02 K/mm3 (0.00-0.10); IMMATURE GRAN PERCENT AUTO 0 % (0-1); LYMPHOCYTES PERCENT AUTO 47 % (21-46); MONOCYTES ABSOLUTE AUTO 0.51 K/mm3 (0.16-1.47); MONOCYTES PERCENT AUTO 8 % (4-13); Mean Corpuscular HGB 31.1 pg (26.0-34.0); Mean Corpuscular HGB Conc 34.9 g/dL (31.5-36.5); Mean Corpuscular Volume 89 fL (80-100); Mean Platelet Volume 9.9 fL (9.1-12.4); NEUTROPHILS ABSOLUTE AUTO 2.59 K/mm3 (1.96-9.15); NEUTROPHILS PERCENT AUTO 42 % (41-73); Platelet Count 318 K/mm3 (150-400); RDW Coefficient Variation 12.1 % (11.7-14.2); RDW Standard Deviation 39.5 fL (35.1-46.3); Red Blood Cell Count 4.66 M/mm3 (4.30-5.90); White Blood Cell Count 6.15 K/mm3 (4.00-11.30)
[2020-03-12 19:20] LABS: Alanine Aminotransfer (ALT/SGP 39 U/L (12-78); Albumin, Blood 3.9 g/dL (3.4-5.0); Albumin/Globulin Ratio 1.1 (0.8-1.8); Alk Phos 72 U/L (50-136); Anion Gap 4 mmol/L (6-16); Aspartate Aminotrans (AST/SGOT 22 U/L (12-37); Bilirubin, Direct <0.1 mg/dL (0.0-0.3); Bilirubin, Indirect Unable to Calculate mg/dL (0.1-0.7); Bilirubin, Total 0.2 mg/dL (0.1-1.0); Blood Urea Nitrogen 15 mg/dL (8-24); Bun/Creatinine Ratio 15.7 (12.0-20.0); CO2, Blood 26 mmol/L (21-32); Calcium, Blood 8.9 mg/dL (8.5-10.1); Chloride, Blood 108 mmol/L (98-108); Creatinine, Blood 0.96 mg/dL (0.60-1.20); Globulin, Blood 3.5 g/dL (2.2-4.0); Glomerular Filtration Rate >60 (60-); Glucose, Blood 98 mg/dL (70-99); Sodium, Blood 138 mmol/L (136-145); Total Protein, Blood 7.4 g/dL (6.4-8.2)
== END | disposition home or self-care (01) ==
LOC: LAB 18:55 → LAB SHORT 18:55
PROVIDERS: Nurse Practitioner
DX: T88.7XXA Unspecified adverse effect of drug or medicament, initial encounter (principal)
CPT/HCPCS: 80053; 82248; 83690; 85025

== ENCOUNTER 2020-03-14 18:01 | Emergency (ER) | payer MEDICARE, OTHER ==
[~2020-03-14] VITALS: Ht 170.2 cm; Wt 90.7 kg
[~2020-03-14 18:01] MED LIST changes: -OMEP20ER PO; -TOPI25 PO
== END 2020-03-14 18:55 | disposition home or self-care (01) ==
LOC: ER 18:01
DX: G40.909 Epilepsy, unspecified, not intractable, without status epilepticus (principal); Z79.899 Other long term (current) drug therapy
CPT/HCPCS: 82947; 99284

== ENCOUNTER 2020-03-30 20:38 | Emergency (ER) | payer MEDICARE, OTHER ==
[~2020-03-30] VITALS: Ht 170.2 cm; Wt 95.7 kg
== END 2020-03-30 22:46 | disposition home or self-care (01) ==
LOC: ER 20:38
DX: R56.9 Unspecified convulsions (principal); Z79.899 Other long term (current) drug therapy
CPT/HCPCS: 82947; 96374; 99284-25; A9270; J2060

== ENCOUNTER 2020-04-07 03:29 | Emergency (ER) | payer MEDICARE, OTHER ==
[~2020-04-07] VITALS: Ht 170.2 cm; Wt 104.3 kg
== END 2020-04-07 08:02 | disposition home or self-care (01) ==
LOC: ER 03:29
DX: S46.002A Unspecified injury of muscle(s) and tendon(s) of the rotator cuff of left shoulder, initial encounter (principal); I10 Essential (primary) hypertension; J45.909 Unspecified asthma, uncomplicated; F17.210 Nicotine dependence, cigarettes, uncomplicated; Z79.899 Other long term (current) drug therapy; W06.XXXA Fall from bed, initial encounter
CPT/HCPCS: 73030; 99283-25

== ENCOUNTER 2020-04-30 00:25 | Emergency (ER) | payer MEDICARE, OTHER ==
[~2020-04-30] VITALS: Ht 170.2 cm; Wt 97.1 kg
[2020-04-30] MEDS ORDERED: OMEP20ER PO (00:45)
== END 2020-04-30 01:15 | disposition home or self-care (01) ==
LOC: ER 00:25
DX: G40.909 Epilepsy, unspecified, not intractable, without status epilepticus (principal); I10 Essential (primary) hypertension; J45.909 Unspecified asthma, uncomplicated; F17.210 Nicotine dependence, cigarettes, uncomplicated; Z91.030 Bee allergy status; Z79.899 Other long term (current) drug therapy
CPT/HCPCS: 99284

== ENCOUNTER 2020-05-28 13:12 | Emergency (ER) | payer MEDICARE, OTHER ==
[~2020-05-28] VITALS: Ht 170.2 cm; Wt 97.5 kg
[~2020-05-28 13:12] MED LIST changes: +OMEP20ER PO
[2020-05-28] MEDS ORDERED: TOPI25 PO (14:29)
[2020-05-28 15:09] LABS: BASOPHILS ABSOLUTE AUTO 0.02 K/mm3 (0.00-0.23); BASOPHILS PERCENT AUTO 0 % (0-2); EOSINOPHILS ABSOLUTE AUTO 0.09 K/mm3 (0.00-0.68); EOSINOPHILS PERCENT AUTO 1 % (0-6); Hematocrit 41.4 % (37.0-53.0); IMMATURE GRAN ABSOLUTE AUTO 0.02 K/mm3 (0.00-0.10); IMMATURE GRAN PERCENT AUTO 0 % (0-1); LYMPHOCYTES ABSOLUTE AUTO 2.71 K/mm3 (0.84-5.20); LYMPHOCYTES PERCENT AUTO 42 % (21-46); MONOCYTES ABSOLUTE AUTO 0.47 K/mm3 (0.16-1.47); MONOCYTES PERCENT AUTO 7 % (4-13); Mean Corpuscular HGB 31.6 pg (26.0-34.0); Mean Corpuscular HGB Conc 36.2 g/dL (31.5-36.5); Mean Corpuscular Volume 87 fL (80-100); Mean Platelet Volume 9.9 fL (9.1-12.4); NEUTROPHILS ABSOLUTE AUTO 3.15 K/mm3 (1.96-9.15); NEUTROPHILS PERCENT AUTO 49 % (41-73); Platelet Count 275 K/mm3 (150-400); RDW Coefficient Variation 12.1 % (11.7-14.2); RDW Standard Deviation 39.1 fL (35.1-46.3); Red Blood Cell Count 4.74 M/mm3 (4.30-5.90); White Blood Cell Count 6.46 K/mm3 (4.00-11.30)
[2020-05-28 15:20] LABS: Alanine Aminotransfer (ALT/SGP 28 U/L (12-78); Albumin, Blood 3.6 g/dL (3.4-5.0); Alk Phos 68 U/L (50-136); Anion Gap 5 mmol/L (6-16); Aspartate Aminotrans (AST/SGOT 17 U/L (12-37); Bilirubin, Total 0.3 mg/dL (0.1-1.0); Blood Urea Nitrogen 14 mg/dL (8-24); Bun/Creatinine Ratio 12.8 (12.0-20.0); CO2, Blood 24 mmol/L (21-32); Calcium, Blood 8.7 mg/dL (8.5-10.1); Chloride, Blood 110 mmol/L (98-108); Creatinine, Blood 1.09 mg/dL (0.60-1.20); Globulin, Blood 3.6 g/dL (2.2-4.0); Glomerular Filtration Rate >60 (60-); Glucose, Blood 82 mg/dL (70-99); Magnesium, Blood 2.1 mg/dL (1.6-2.4); Potassium, Blood 3.8 mmol/L (3.5-5.5); Sodium, Blood 139 mmol/L (136-145); Total Protein, Blood 7.2 g/dL (6.4-8.2)
== END 2020-05-28 15:08 | disposition home or self-care (01) ==
LOC: ER 13:12
PROVIDERS: Physician Assistant
DX: G40.909 Epilepsy, unspecified, not intractable, without status epilepticus (principal); I10 Essential (primary) hypertension; Z91.030 Bee allergy status; Z79.899 Other long term (current) drug therapy
CPT/HCPCS: 80053; 83735; 85025; 93005; 93010; 99284-25

== ENCOUNTER → 2020-08-26 | Outpatient (CLI) | payer MEDICARE, OTHER ==
[~2020-08-26] MED LIST changes: +TOPI25 PO
== END ==
LOC: LAB SHORT 14:30 → LAB 14:30
DX: L02.612 Cutaneous abscess of left foot (principal)
CPT/HCPCS: 87070; 87075; 87077; 87147; 87186; 87205

== ENCOUNTER 2024-06-23 20:11 | Emergency (ER) | payer MEDICARE, OTHER ==
[~2024-06-23] VITALS: Ht 170.2 cm; Wt 95.2 kg
[2024-06-23 20:19] VITALS: BP 150/85
== END 2024-06-23 21:48 | disposition home or self-care (01) ==
LOC: ER 20:11
DX: L03.032 Cellulitis of left toe (principal); I10 Essential (primary) hypertension; G40.909 Epilepsy, unspecified, not intractable, without status epilepticus; J45.909 Unspecified asthma, uncomplicated; F32.A Depression, unspecified; F17.210 Nicotine dependence, cigarettes, uncomplicated; F17.290 Nicotine dependence, other tobacco product, uncomplicated; Z79.899 Other long term (current) drug therapy; Z88.8 Allergy status to other drugs, medicaments and biological substances; Z91.030 Bee allergy status; Z91.048 Other nonmedicinal substance allergy status

== ENCOUNTER 2024-06-28 14:52 | Emergency (ER) | payer MEDICARE, OTHER ==
[~2024-06-28] VITALS: Ht 170.2 cm; Wt 79.4 kg
[~2024-06-28 14:52] MED LIST changes: +SULTRIDS PO
[2024-06-28 15:08] VITALS: BP 156/84
[2024-06-28 16:12] LABS: BASOPHILS ABSOLUTE AUTO 0.03 K/mm3 (0.00-0.23); BASOPHILS PERCENT AUTO 1 % (0-2); EOSINOPHILS ABSOLUTE AUTO 0.18 K/mm3 (0.00-0.68); EOSINOPHILS PERCENT AUTO 3 % (0-6); Hematocrit 41.8 % (37.0-53.0); Hemoglobin 14.5 g/dL (13.5-17.5); IMMATURE GRAN ABSOLUTE AUTO 0.01 K/mm3 (0.00-0.10); IMMATURE GRAN PERCENT AUTO 0 % (0-1); LYMPHOCYTES ABSOLUTE AUTO 2.57 K/mm3 (0.84-5.20); LYMPHOCYTES PERCENT AUTO 39 % (21-46); MONOCYTES ABSOLUTE AUTO 0.48 K/mm3 (0.16-1.47); MONOCYTES PERCENT AUTO 7 % (4-13); Mean Corpuscular HGB Conc 34.7 g/dL (31.5-36.5); Mean Corpuscular Volume 89 fL (80-100); Mean Platelet Volume 9.4 fL (9.1-12.4); NEUTROPHILS ABSOLUTE AUTO 3.32 K/mm3 (1.96-9.15); NEUTROPHILS PERCENT AUTO 50 % (41-73); Platelet Count 325 K/mm3 (150-400); RDW Coefficient Variation 12.7 % (11.7-14.2); RDW Standard Deviation 41.5 fL (35.1-46.3); Red Blood Cell Count 4.68 M/mm3 (4.30-5.90); White Blood Cell Count 6.59 K/mm3 (4.00-11.30)
[2024-06-28 16:37] LABS: Albumin, Blood 3.6 g/dL (3.4-5.0); Albumin/Globulin Ratio 0.9 (0.8-1.8); Bilirubin, Total 0.1 mg/dL (0.1-1.0); Bun/Creatinine Ratio 16.6 (12.0-20.0); Calcium, Blood 9.3 mg/dL (8.5-10.1); Creatinine, Blood 0.9 mg/dL (0.60-1.20); Globulin, Blood 3.9 g/dL (2.2-4.0); Potassium, Blood 3.7 mmol/L (3.5-5.5); Total Protein, Blood 7.5 g/dL (6.4-8.2)
[2024-06-28] MEDS ORDERED: Doxycycline Hyclate 100 MG TAB PO ONE (17:05)
[2024-06-28] MEDS ORDERED: Ketorolac Tromethamine 30mg Vial IM ONE (17:10)
[2024-06-28] MEDS ORDERED: Doxycycline Mo100 M1 PO (17:11)
== END 2024-06-28 17:21 | disposition home or self-care (01) ==
LOC: ER 14:52
PROVIDERS: Student in an Organized Health Care Education/Training Program
DX: L03.116 Cellulitis of left lower limb (principal); B35.3 Tinea pedis; I10 Essential (primary) hypertension; F43.10 Post-traumatic stress disorder, unspecified; G40.909 Epilepsy, unspecified, not intractable, without status epilepticus; J45.909 Unspecified asthma, uncomplicated; F17.290 Nicotine dependence, other tobacco product, uncomplicated; Z91.048 Other nonmedicinal substance allergy status; Z91.030 Bee allergy status; Z88.8 Allergy status to other drugs, medicaments and biological substances; Z79.899 Other long term (current) drug therapy
CPT/HCPCS: 73620; 80053; 83036; 85025; 96372; 99284-25; A9270; J1885

== ENCOUNTER 2024-09-10 18:31 | Emergency (ER) | payer MEDICARE, OTHER ==
[~2024-09-10] VITALS: Ht 167.6 cm; Wt 81.7 kg
[~2024-09-10 18:31] MED LIST changes: +Doxycycline Mo100 M1 PO
[2024-09-10 18:54] VITALS: BP 157/80
[2024-09-10] MEDS ORDERED: IBUP400 PO (20:45)
== END 2024-09-10 20:52 | disposition home or self-care (01) ==
LOC: ER 18:31
DX: M25.531 Pain in right wrist (principal); I10 Essential (primary) hypertension; F17.210 Nicotine dependence, cigarettes, uncomplicated; F17.290 Nicotine dependence, other tobacco product, uncomplicated; W22.09XA Striking against other stationary object, initial encounter; Z91.030 Bee allergy status; Z88.8 Allergy status to other drugs, medicaments and biological substances; Z91.09 Other allergy status, other than to drugs and biological substances; Z79.899 Other long term (current) drug therapy
CPT/HCPCS: 29125; 73120; 99283-25